=== PATIENT | male | born 1970 | race Caucasian/White ===

== ENCOUNTER → 2017-10-03 | Outpatient (CLI) | payer OTHER ==
[~2017-10-03] MED LIST: CEPH500 PO; HYDACE5 PO; SULTRIDS PO
[2017-10-03 09:48] LABS: BASOPHILS ABSOLUTE AUTO 0.03 K/mm3 (0.00-0.23); BASOPHILS PERCENT AUTO 0 % (0-2); EOSINOPHILS ABSOLUTE AUTO 0.08 K/mm3 (0.00-0.68); EOSINOPHILS PERCENT AUTO 1 % (0-6); Hematocrit 44.1 % (37.0-53.0); Hemoglobin 14.6 g/dL (13.5-17.5); IMMATURE GRAN ABSOLUTE AUTO 0.02 K/mm3 (0.00-0.10); IMMATURE GRAN PERCENT AUTO 0 % (0-1); LYMPHOCYTES ABSOLUTE AUTO 1.34 K/mm3 (0.84-5.20); LYMPHOCYTES PERCENT AUTO 15 % (21-46); MONOCYTES ABSOLUTE AUTO 0.38 K/mm3 (0.16-1.47); MONOCYTES PERCENT AUTO 4 % (4-13); Mean Corpuscular HGB 27.3 pg (26.0-34.0); Mean Corpuscular HGB Conc 33.1 g/dL (31.5-36.5); Mean Corpuscular Volume 82 fL (80-100); Mean Platelet Volume 9.7 fL (9.1-12.4); NEUTROPHILS ABSOLUTE AUTO 7.34 K/mm3 (1.96-9.15); NEUTROPHILS PERCENT AUTO 80 % (41-73); Platelet Count 327 K/mm3 (150-400); RDW Coefficient Variation 13.2 % (11.7-14.2); RDW Standard Deviation 39.7 fL (35.1-46.3); Red Blood Cell Count 5.35 M/mm3 (4.30-5.90); White Blood Cell Count 9.19 K/mm3 (4.00-11.30)
[2017-10-03 10:10] LABS: Alanine Aminotransfer (ALT/SGP 36 U/L (12-78); Albumin, Blood 3.5 g/dL (3.4-5.0); Albumin/Globulin Ratio 0.8 (0.8-1.8); Alk Phos 102 U/L (40-126); Anion Gap 11 mmol/L (6-16); Aspartate Aminotrans (AST/SGOT 24 U/L (12-37); Bilirubin, Total 0.9 mg/dL (0.1-1.0); Blood Urea Nitrogen 21 mg/dL (8-24); Bun/Creatinine Ratio 17.6 (12.0-20.0); CO2, Blood 25 mmol/L (21-32); Chloride, Blood 103 mmol/L (98-108); Creatinine, Blood 1.19 mg/dL (0.60-1.20); Globulin, Blood 4.4 g/dL (2.2-4.0); Glomerular Filtration Rate >60 (60-); Glucose, Blood 186 mg/dL (70-99); Potassium, Blood 4.1 mmol/L (3.5-5.5); Sodium, Blood 139 mmol/L (136-145); Total Protein, Blood 7.9 g/dL (6.4-8.2)
[2017-10-03 10:11] LABS: Troponin I <0.017 ng/mL (0.000-0.040)
== END ==
LOC: LAB SHORT 09:44 → LAB EV 09:44
PROVIDERS: Physician Assistant
DX: R07.89 Other chest pain (principal)
CPT/HCPCS: 80053; 83690; 84484; 85025

== ENCOUNTER → 2017-10-04 | Outpatient (CLI) | payer OTHER ==
[2017-10-04 07:52] LABS: Anion Gap 6 mmol/L (6-16); Blood Urea Nitrogen 18 mg/dL (8-24); Bun/Creatinine Ratio 14.6 (12.0-20.0); CO2, Blood 25 mmol/L (21-32); Calcium, Blood 8.6 mg/dL (8.5-10.1); Chloride, Blood 105 mmol/L (98-108); Creatinine, Blood 1.23 mg/dL (0.60-1.20); Glomerular Filtration Rate >60 (60-); Glucose, Blood 151 mg/dL (70-99); Potassium, Blood 4.1 mmol/L (3.5-5.5); Sodium, Blood 136 mmol/L (136-145)
== END ==
LOC: LAB EV 07:40 → LAB SHORT 07:40
PROVIDERS: General Practice
DX: J18.9 Pneumonia, unspecified organism (principal)
CPT/HCPCS: 80048

== ENCOUNTER 2017-11-12 08:52 | Inpatient (IN) | payer OTHER ==
[~2017-11-12] VITALS: Ht 182.9 cm; Wt 115.0 kg
[2017-11-12 09:45] LABS: Calcium, Ionized (POC) 1.12 mmol/L (1.10-1.46); Chloride (POC) 104 mmol/L (98-108); Creatinine (POC) 0.8 mg/dL (0.8-1.3); Glucose (ISTAT POC) 328 mg/dL (70-99); Hemoglobin (POC) 11.9 g/dL (13.5-17.5); Potassium (POC) 3.8 mmol/L (3.5-5.5); Sodium (POC) 139 mmol/L (135-148); Total CO2 (POC) 24 mmol/L (21-32)
[2017-11-12 09:48] LABS: BASOPHILS ABSOLUTE AUTO 0.02 K/mm3 (0.00-0.23); BASOPHILS PERCENT AUTO 0 % (0-2); EOSINOPHILS ABSOLUTE AUTO 0.07 K/mm3 (0.00-0.68); EOSINOPHILS PERCENT AUTO 1 % (0-6); Hematocrit 35.9 % (37.0-53.0); Hemoglobin 11.4 g/dL (13.5-17.5); IMMATURE GRAN ABSOLUTE AUTO 0.03 K/mm3 (0.00-0.10); IMMATURE GRAN PERCENT AUTO 0 % (0-1); LYMPHOCYTES ABSOLUTE AUTO 0.88 K/mm3 (0.84-5.20); LYMPHOCYTES PERCENT AUTO 10 % (21-46); MONOCYTES ABSOLUTE AUTO 0.36 K/mm3 (0.16-1.47); MONOCYTES PERCENT AUTO 4 % (4-13); Mean Corpuscular HGB 25.8 pg (26.0-34.0); Mean Corpuscular HGB Conc 31.8 g/dL (31.5-36.5); Mean Corpuscular Volume 81 fL (80-100); Mean Platelet Volume 9.3 fL (9.1-12.4); NEUTROPHILS ABSOLUTE AUTO 7.47 K/mm3 (1.96-9.15); NEUTROPHILS PERCENT AUTO 85 % (41-73); Platelet Count 258 K/mm3 (150-400); RDW Coefficient Variation 14.3 % (11.7-14.2); RDW Standard Deviation 42.3 fL (35.1-46.3); Red Blood Cell Count 4.42 M/mm3 (4.30-5.90); White Blood Cell Count 8.83 K/mm3 (4.00-11.30)
[2017-11-12 10:07] LABS: Alanine Aminotransfer (ALT/SGP 34 U/L (12-78); Albumin, Blood 2.8 g/dL (3.4-5.0); Albumin/Globulin Ratio 0.7 (0.8-1.8); Alk Phos 94 U/L (50-136); Anion Gap 10 mmol/L (6-16); Aspartate Aminotrans (AST/SGOT 23 U/L (12-37); Bilirubin, Total 0.9 mg/dL (0.1-1.0); Blood Urea Nitrogen 20 mg/dL (8-24); Bun/Creatinine Ratio 22.4 (12.0-20.0); CO2, Blood 24 mmol/L (21-32); Calcium, Blood 8.2 mg/dL (8.5-10.1); Chloride, Blood 107 mmol/L (98-108); Creatinine, Blood 0.89 mg/dL (0.60-1.20); Globulin, Blood 3.8 g/dL (2.2-4.0); Glomerular Filtration Rate >60 (60-); Glucose, Blood 321 mg/dL (70-99); Potassium, Blood 3.8 mmol/L (3.5-5.5); Sodium, Blood 141 mmol/L (136-145); Total Protein, Blood 6.6 g/dL (6.4-8.2); Troponin I <0.015 ng/mL (0.000-0.040)
[2017-11-12 18:42] LABS: CPK Creatine Kinase 201 U/L (39-308); Creatine Kinase MB Index 1.5 (0.0-4.0); Troponin I <0.015 ng/mL (0.000-0.040)
[2017-11-12 18:43] LABS: Thyroid Stimulating Hormone 0.986 uIU/mL (0.360-4.800)
[2017-11-13 00:58] LABS: Adenovirus Not Detected (NOT DETECT); Coronavirus 229E Not Detected (NOT DETECT); Coronavirus HKU1 Not Detected (NOT DETECT); Coronavirus NL63 Not Detected (NOT DETECT); Coronavirus OC43 Not Detected (NOT DETECT); Human Metapneumovirus Not Detected (NOT DETECT); Human Rhinovirus/Enterovirus Not Detected (NOT DETECT); Influenza A/2009-H1 Not Detected (NOT DETECT); Influenza A/H1 Not Detected (NOT DETECT); Influenza A/H3 Not Detected (NOT DETECT); Influenza B Not Detected (NOT DETECT)
[2017-11-13 00:59] LABS: Bordetella pertussis Not Detected (NOT DETECT); Chlamydophila pneumoniae Not Detected (NOT DETECT); Mycoplasma pneumoniae Not Detected (NOT DETECT); Parainfluenza Virus 1 Not Detected (NOT DETECT); Parainfluenza Virus 2 Not Detected (NOT DETECT); Parainfluenza Virus 3 Not Detected (NOT DETECT); Parainfluenza Virus 4 Not Detected (NOT DETECT); Respiratory Syncytial Virus Not Detected (NOT DETECT)
[2017-11-13 02:15] LABS: Hemoglobin 11.1 g/dL (13.5-17.5); Mean Corpuscular HGB 25.6 pg (26.0-34.0); Mean Corpuscular HGB Conc 31.7 g/dL (31.5-36.5); Mean Corpuscular Volume 81 fL (80-100); Mean Platelet Volume 9.6 fL (9.1-12.4); Platelet Count 256 K/mm3 (150-400); RDW Coefficient Variation 14.4 % (11.7-14.2); RDW Standard Deviation 42.5 fL (35.1-46.3); Red Blood Cell Count 4.34 M/mm3 (4.30-5.90); White Blood Cell Count 6.86 K/mm3 (4.00-11.30)
[2017-11-13 02:26] LABS: Influenza A Not Detected (NOT DETECT)
[2017-11-13 02:38] LABS: Alanine Aminotransfer (ALT/SGP 29 U/L (12-78); Albumin, Blood 2.6 g/dL (3.4-5.0); Albumin/Globulin Ratio 0.7 (0.8-1.8); Alk Phos 88 U/L (50-136); Anion Gap 11 mmol/L (6-16); Aspartate Aminotrans (AST/SGOT 18 U/L (12-37); Blood Urea Nitrogen 17 mg/dL (8-24); Bun/Creatinine Ratio 17.4 (12.0-20.0); CO2, Blood 22 mmol/L (21-32); Chloride, Blood 107 mmol/L (98-108); Creatinine, Blood 0.98 mg/dL (0.60-1.20); Globulin, Blood 3.8 g/dL (2.2-4.0); Glomerular Filtration Rate >60 (60-); Glucose, Blood 166 mg/dL (70-99); Potassium, Blood 3.4 mmol/L (3.5-5.5); Sodium, Blood 140 mmol/L (136-145); Total Protein, Blood 6.4 g/dL (6.4-8.2)
[2017-11-13 02:42] LABS: Creatine Kinase MB Index 1.2 (0.0-4.0)
[2017-11-13 02:53] LABS: Troponin I 0.016 ng/mL (0.000-0.040)
[2017-11-13 12:42] LABS: Percent Saturation 6.9 % (20.0-50.0)
[2017-11-14 04:12] LABS: Hematocrit 33.7 % (37.0-53.0); Hemoglobin 10.6 g/dL (13.5-17.5); Mean Corpuscular HGB 25.2 pg (26.0-34.0); Mean Corpuscular HGB Conc 31.5 g/dL (31.5-36.5); Mean Corpuscular Volume 80 fL (80-100); Mean Platelet Volume 9.8 fL (9.1-12.4); Platelet Count 290 K/mm3 (150-400); RDW Coefficient Variation 14.6 % (11.7-14.2); RDW Standard Deviation 42.5 fL (35.1-46.3); Red Blood Cell Count 4.21 M/mm3 (4.30-5.90); White Blood Cell Count 7.47 K/mm3 (4.00-11.30)
[2017-11-14 04:38] LABS: Anion Gap 11 mmol/L (6-16); Blood Urea Nitrogen 18 mg/dL (8-24); Bun/Creatinine Ratio 17.6 (12.0-20.0); CO2, Blood 24 mmol/L (21-32); Calcium, Blood 8.2 mg/dL (8.5-10.1); Chloride, Blood 106 mmol/L (98-108); Creatinine, Blood 1.02 mg/dL (0.60-1.20); Glomerular Filtration Rate >60 (60-); Glucose, Blood 167 mg/dL (70-99); Magnesium, Blood 2.1 mg/dL (1.6-2.4); Phosphorus, Blood 3.3 mg/dL (2.5-4.9); Potassium, Blood 3.4 mmol/L (3.5-5.5); Sodium, Blood 141 mmol/L (136-145)
[2017-11-15 04:58] LABS: Albumin, Blood 2.5 g/dL (3.4-5.0); Anion Gap 10 mmol/L (6-16); Blood Urea Nitrogen 22 mg/dL (8-24); Bun/Creatinine Ratio 19.3 (12.0-20.0); CO2, Blood 25 mmol/L (21-32); Calcium, Blood 8.4 mg/dL (8.5-10.1); Chloride, Blood 105 mmol/L (98-108); Creatinine, Blood 1.14 mg/dL (0.60-1.20); Glomerular Filtration Rate >60 (60-); Glucose, Blood 144 mg/dL (70-99); Phosphorus, Blood 3.5 mg/dL (2.5-4.9); Potassium, Blood 3.5 mmol/L (3.5-5.5); Sodium, Blood 140 mmol/L (136-145)
[2017-11-15] MEDS ORDERED: CARV6.25 PO (11:18)
[2017-11-15] MEDS ORDERED: DOCU100 PO (11:19)
[2017-11-15] MEDS ORDERED: Ferrous Sulfat325 M2 PO (11:21)
[2017-11-15] MEDS ORDERED: SPIR25 PO (11:22)
[2017-11-15] MEDS ORDERED: Prinivil10 MG PO (11:22)
[2017-11-15] MEDS ORDERED: Augmentin 875-1 EACH PO (11:25)
[2017-11-15] MEDS ORDERED: AZIT500 PO (11:25)
[2017-11-15] MEDS ORDERED: FURO40 PO (11:27)
[2017-11-15] MEDS ORDERED: ACIDOPHILUS1 EAC1 PO (11:29)
[2017-11-15] MEDS ORDERED: METF500C PO (11:30)
== END 2017-11-15 13:38 | disposition home or self-care (01) | DRG 871 ==
LOC: ER 08:52 → PCU 13:30 → MEDS 11-14 16:35 → PCU 11-14 16:47 → MEDS 11-15 13:38
PROVIDERS: Internal Medicine; Internal Medicine Cardiovascular Disease
DX: A41.9 Sepsis, unspecified organism (principal); J18.9 Pneumonia, unspecified organism; J96.00 Acute respiratory failure, unspecified whether with hypoxia or hypercapnia; I50.21 Acute systolic (congestive) heart failure; I42.0 Dilated cardiomyopathy; E11.65 Type 2 diabetes mellitus with hyperglycemia; D50.9 Iron deficiency anemia, unspecified; D63.8 Anemia in other chronic diseases classified elsewhere; E66.9 Obesity, unspecified; Z68.33 Body mass index [BMI] 33.0-33.9, adult; I08.3 Combined rheumatic disorders of mitral, aortic and tricuspid valves; I11.0 Hypertensive heart disease with heart failure; E87.70 Fluid overload, unspecified; Z79.84 Long term (current) use of oral hypoglycemic drugs
CPT/HCPCS: 36415; 71046; 71260; 80047; 80048; 80053; 80069; 82550; 82553; 82728; 82947; 83036; 83540; 83550; 83605; 83735; 83880; 84100; 84145; 84443; 84484; 85014; 85025; 85027; 87040; 87070; 87205; 87449; 87486; 87581; 87633; 87798; 93005; 93010; 93306; 94640; 94760; 99285; J0456; J1650; J1940; J2405; J2543; J7030; J7050; Q9967

== ENCOUNTER 2018-01-15 06:06 | Day surgery (SDC) | payer OTHER ==
[~2018-01-15] VITALS: Ht 177.8 cm; Wt 104.0 kg
[~2018-01-15 06:06] MED LIST changes: +ACIDOPHILUS1 EAC1 PO; +AZIT500 PO; +Aspir 8181 MG PO; +Augmentin 875-1 EACH PO; +CARV6.25 PO; +DOCU100 PO; +EPIPEN0.3 MG/0.3; +FURO40 PO; +Ferrous Sulfat325 M2 PO; +METF500C PO; +Prinivil10 MG PO; +SPIR25 PO
[2018-01-15] MEDS ORDERED: ENTRESTO 24 MG1 EACH PO (06:32)
[2018-01-16] MEDS ORDERED: Aspirin EC325 MG PO (09:50)
[2018-01-16] MEDS ORDERED: CLOP75 PO (09:50)
== END 2018-01-16 10:30 | disposition home or self-care (01) ==
LOC: MHTC 06:06 → PCU 09:32 → MHTC 01-16 10:30
PROC: 4A033BC Measurement of Arterial Pressure, Coronary, Percutaneous Approach (ICD-10-PCS; principal; 2018-01-15)
PROC: B211YZZ Fluoroscopy of Multiple Coronary Arteries using Other Contrast (ICD-10-PCS; principal; 2018-01-15)
PROC: 027034Z Dilation of Coronary Artery, One Artery with Drug-eluting Intraluminal Device, Percutaneous Approach (ICD-10-PCS; principal; 2018-01-15)
PROC: 4A023N7 Measurement of Cardiac Sampling and Pressure, Left Heart, Percutaneous Approach (ICD-10-PCS; principal; 2018-01-15)
DX: I25.10 Atherosclerotic heart disease of native coronary artery without angina pectoris (principal); I42.9 Cardiomyopathy, unspecified; E66.9 Obesity, unspecified; I10 Essential (primary) hypertension; E11.9 Type 2 diabetes mellitus without complications; E78.5 Hyperlipidemia, unspecified; R06.02 Shortness of breath
CPT/HCPCS: 36415; 82565; 85347; 93005; 93010; 93454; 93571; 99152; 99153; C1725; C1769; C1874; C1894; C9600; J1644; J2250; J3010; J7030; Q9967

== ENCOUNTER → 2018-12-05 | Outpatient (CLI) | payer OTHER ==
[~2018-12-05] MED LIST changes: +ATOR20 PO; +Aspirin EC325 MG PO; +CLOP75 PO; +ENTRESTO 24 MG1 EACH PO; +Glucotrol Xl5 MG PO; +METO25ER PO
== END | disposition home or self-care (01) ==
LOC: LAB SHORT 18:55 → LAB 18:55
DX: E11.621 Type 2 diabetes mellitus with foot ulcer (principal); L97.519 Non-pressure chronic ulcer of other part of right foot with unspecified severity
CPT/HCPCS: 87070; 87077; 87186; 87205

== ENCOUNTER → 2019-05-09 | Outpatient (CLI) | payer OTHER ==
[2019-05-09 14:12] LABS: Microalb/Creat Ratio UR, Rand 18.205 mg/g (0.000-30.000); Microalbumin, Random Urine 21.3 mg/L (0.000-20.000)
== END | disposition home or self-care (01) ==
LOC: LAB SHORT 10:41 → LAB 10:41
PROVIDERS: Nurse Practitioner Family
DX: E11.42 Type 2 diabetes mellitus with diabetic polyneuropathy (principal)
CPT/HCPCS: 82043; 82570

== ENCOUNTER → 2019-05-23 | Outpatient (CLI) | payer OTHER | END | disposition home or self-care (01) | LOC: LAB SHORT 13:20 → LAB 13:20 | DX: L97.519 Non-pressure chronic ulcer of other part of right foot with unspecified severity (principal) | CPT/HCPCS: 87070; 87075; 87205 ==

== ENCOUNTER 2020-09-24 08:54 | Day surgery (SDC) | payer OTHER | END 2020-09-24 09:00 | disposition home or self-care (01) | LOC: MHTC 08:54 | DX: I50.811 Acute right heart failure (principal) ==

== ENCOUNTER 2020-12-24 18:43 | Inpatient (IN) | payer OTHER ==
[~2020-12-24] VITALS: Ht 180.3 cm; Wt 112.7 kg
[~2020-12-24 18:43] MED LIST changes: -ATOR20 PO; +ATOR40TA PO; +ERGO50000 PO; +LATA.005SO BOTHEYES; +LEVO750 PO; +LOSA25 PO; +Lasix20 MG PO; +METO100ER PO; -METO25ER PO; +POTCHL20ER PO
[2020-12-24 19:07] LABS: BASOPHILS ABSOLUTE AUTO 0.01 K/mm3 (0.00-0.23); BASOPHILS PERCENT AUTO 0 % (0-2); EOSINOPHILS PERCENT AUTO 0 % (0-6); Hematocrit 38.7 % (37.0-53.0); Hemoglobin 12.3 g/dL (13.5-17.5); IMMATURE GRAN ABSOLUTE AUTO 0.03 K/mm3 (0.00-0.10); IMMATURE GRAN PERCENT AUTO 0 % (0-1); LYMPHOCYTES ABSOLUTE AUTO 0.39 K/mm3 (0.84-5.20); LYMPHOCYTES PERCENT AUTO 5 % (21-46); MONOCYTES ABSOLUTE AUTO 0.33 K/mm3 (0.16-1.47); MONOCYTES PERCENT AUTO 5 % (4-13); Mean Corpuscular HGB 25.9 pg (26.0-34.0); Mean Corpuscular HGB Conc 31.8 g/dL (31.5-36.5); Mean Corpuscular Volume 82 fL (80-100); Mean Platelet Volume 10.5 fL (9.1-12.4); NEUTROPHILS ABSOLUTE AUTO 6.48 K/mm3 (1.96-9.15); NEUTROPHILS PERCENT AUTO 90 % (41-73); Platelet Count 248 K/mm3 (150-400); RDW Standard Deviation 48.1 fL (35.1-46.3); Red Blood Cell Count 4.74 M/mm3 (4.30-5.90); White Blood Cell Count 7.24 K/mm3 (4.00-11.30)
[2020-12-24 19:43] LABS: Albumin, Blood 2.7 g/dL (3.4-5.0); Albumin/Globulin Ratio 0.6 (0.8-1.8); Bilirubin, Total 1.2 mg/dL (0.1-1.0); Bun/Creatinine Ratio 24.5 (12.0-20.0); Calcium, Blood 8.6 mg/dL (8.5-10.1); Creatinine, Blood 2.69 mg/dL (0.60-1.20); Globulin, Blood 4.6 g/dL (2.2-4.0); Potassium, Blood 4.1 mmol/L (3.5-5.5); Total Protein, Blood 7.3 g/dL (6.4-8.2); Troponin I 0.108 ng/mL (0.000-0.040)
[2020-12-24 20:00] LABS: SARS-Cov-2 (COVID-19) PCR, MMC POSITIVE (NEGATIVE)
[2020-12-25 05:06] LABS: BASOPHILS ABSOLUTE AUTO 0.02 K/mm3 (0.00-0.23); BASOPHILS PERCENT AUTO 0 % (0-2); EOSINOPHILS PERCENT AUTO 0 % (0-6); Hematocrit 37.5 % (37.0-53.0); Hemoglobin 11.9 g/dL (13.5-17.5); Mean Corpuscular HGB 26.4 pg (26.0-34.0); Mean Corpuscular HGB Conc 31.7 g/dL (31.5-36.5); Mean Corpuscular Volume 83 fL (80-100); Mean Platelet Volume 10.4 fL (9.1-12.4); Platelet Count 239 K/mm3 (150-400); RDW Coefficient Variation 15.9 % (11.7-14.2); RDW Standard Deviation 48.5 fL (35.1-46.3); Red Blood Cell Count 4.51 M/mm3 (4.30-5.90); White Blood Cell Count 7.63 K/mm3 (4.00-11.30)
[2020-12-25 05:08] LABS: IMMATURE GRAN ABSOLUTE AUTO 0.05 K/mm3 (0.00-0.10); IMMATURE GRAN PERCENT AUTO 1 % (0-1); LYMPHOCYTES ABSOLUTE AUTO 0.42 K/mm3 (0.84-5.20); LYMPHOCYTES PERCENT AUTO 6 % (21-46); MONOCYTES ABSOLUTE AUTO 0.24 K/mm3 (0.16-1.47); MONOCYTES PERCENT AUTO 3 % (4-13); NEUTROPHILS PERCENT AUTO 90 % (41-73)
[2020-12-25 05:30] LABS: Troponin I 0.095 ng/mL (0.000-0.040)
[2020-12-25 05:31] LABS: Albumin, Blood 2.5 g/dL (3.4-5.0); Albumin/Globulin Ratio 0.5 (0.8-1.8); Bilirubin, Total 1.2 mg/dL (0.1-1.0); Calcium, Blood 8.4 mg/dL (8.5-10.1); Creatinine, Blood 2.83 mg/dL (0.60-1.20); Globulin, Blood 4.8 g/dL (2.2-4.0); Potassium, Blood 4.1 mmol/L (3.5-5.5); Total Protein, Blood 7.3 g/dL (6.4-8.2)
[2020-12-27 05:42] LABS: BASOPHILS PERCENT AUTO 0 % (0-2); EOSINOPHILS PERCENT AUTO 0 % (0-6); Hematocrit 39.5 % (37.0-53.0); Hemoglobin 12.5 g/dL (13.5-17.5); IMMATURE GRAN ABSOLUTE AUTO 0.09 K/mm3 (0.00-0.10); IMMATURE GRAN PERCENT AUTO 1 % (0-1); LYMPHOCYTES ABSOLUTE AUTO 0.48 K/mm3 (0.84-5.20); LYMPHOCYTES PERCENT AUTO 5 % (21-46); MONOCYTES ABSOLUTE AUTO 0.28 K/mm3 (0.16-1.47); MONOCYTES PERCENT AUTO 3 % (4-13); Mean Corpuscular HGB 26.4 pg (26.0-34.0); Mean Corpuscular HGB Conc 31.6 g/dL (31.5-36.5); Mean Corpuscular Volume 83 fL (80-100); Mean Platelet Volume 10.3 fL (9.1-12.4); NEUTROPHILS PERCENT AUTO 91 % (41-73); Platelet Count 345 K/mm3 (150-400); RDW Coefficient Variation 15.7 % (11.7-14.2); RDW Standard Deviation 48.1 fL (35.1-46.3); Red Blood Cell Count 4.74 M/mm3 (4.30-5.90); White Blood Cell Count 9.45 K/mm3 (4.00-11.30)
[2020-12-27 06:07] LABS: Bun/Creatinine Ratio 36.1 (12.0-20.0); Calcium, Blood 9.1 mg/dL (8.5-10.1); Creatinine, Blood 2.05 mg/dL (0.60-1.20); Potassium, Blood 4.5 mmol/L (3.5-5.5)
[2020-12-29] MEDS ORDERED: CLOP75 PO (15:16)
[2020-12-29] MEDS ORDERED: ATOR40TA PO (15:16)
[2020-12-29] MEDS ORDERED: Aspir 8181 MG PO (15:16)
[2020-12-29] MEDS ORDERED: DEXA6 PO (15:17)
[2020-12-29] MEDS ORDERED: METO100ER PO (15:18)
[2020-12-29] MEDS ORDERED: SODBIC650 PO (15:18)
[2020-12-29] MEDS ORDERED: ALDACTONE25 MG PO (15:18)
[2020-12-29] MEDS ORDERED: XALATAN2.5 ML BOTHEYES (15:18)
[2020-12-29] MEDS ORDERED: THERA-D2000 UNIT PO (15:19)
== END 2020-12-29 19:44 | disposition home or self-care (01) | DRG 871 ==
LOC: ER 18:43 → ERHOLD 21:24 → MEDS 21:24
PROVIDERS: Emergency Medicine; Hospitalist; ADMIT Internal Medicine
PROC: 3E0D73Z Introduction of Anti-inflammatory into Mouth and Pharynx, Via Natural or Artificial Opening (ICD-10-PCS; principal; 2020-12-24)
DX: A41.89 Other specified sepsis (principal); U07.1 COVID-19; J12.82 Pneumonia due to coronavirus disease 2019; J96.01 Acute respiratory failure with hypoxia; I42.8 Other cardiomyopathies; I50.22 Chronic systolic (congestive) heart failure; I24.8 Other forms of acute ischemic heart disease; N17.9 Acute kidney failure, unspecified; E87.2 Acidosis; Z68.41 Body mass index [BMI] 40.0-44.9, adult; Z66 Do not resuscitate; R65.20 Severe sepsis without septic shock; E11.65 Type 2 diabetes mellitus with hyperglycemia; N18.30 Chronic kidney disease, stage 3 unspecified; E11.22 Type 2 diabetes mellitus with diabetic chronic kidney disease; I34.0 Nonrheumatic mitral (valve) insufficiency; E66.9 Obesity, unspecified; I25.10 Atherosclerotic heart disease of native coronary artery without angina pectoris; D50.9 Iron deficiency anemia, unspecified; Z87.891 Personal history of nicotine dependence; Z91.038 Other insect allergy status; Z95.810 Presence of automatic (implantable) cardiac defibrillator; Z79.82 Long term (current) use of aspirin; Z79.02 Long term (current) use of antithrombotics/antiplatelets; Z79.84 Long term (current) use of oral hypoglycemic drugs; Z79.899 Other long term (current) drug therapy; Z95.5 Presence of coronary angioplasty implant and graft
CPT/HCPCS: 36415; 71045; 80048; 80053; 82728; 82947; 83615; 83880; 84484; 85025; 85379; 85651; 93005; 93010; 99285-25; A9270; J1650; J1815; J1940; U0004

== ENCOUNTER 2021-03-28 08:21 | Inpatient (IN) | payer OTHER ==
[~2021-03-28] VITALS: Ht 180.3 cm; Wt 118.0 kg
[~2021-03-28 08:21] MED LIST changes: +ALDACTONE25 MG PO; +DEXA6 PO; +SODBIC650 PO; +THERA-D2000 UNIT PO; +XALATAN2.5 ML BOTHEYES
[2021-03-28 08:49] LABS: BASOPHILS ABSOLUTE AUTO 0.04 K/mm3 (0.00-0.23); BASOPHILS PERCENT AUTO 0 % (0-2); EOSINOPHILS ABSOLUTE AUTO 0.07 K/mm3 (0.00-0.68); EOSINOPHILS PERCENT AUTO 1 % (0-6); Hematocrit 36.4 % (37.0-53.0); Hemoglobin 10.7 g/dL (13.5-17.5); IMMATURE GRAN ABSOLUTE AUTO 0.04 K/mm3 (0.00-0.10); IMMATURE GRAN PERCENT AUTO 0 % (0-1); LYMPHOCYTES ABSOLUTE AUTO 0.81 K/mm3 (0.84-5.20); LYMPHOCYTES PERCENT AUTO 8 % (21-46); MONOCYTES ABSOLUTE AUTO 0.74 K/mm3 (0.16-1.47); MONOCYTES PERCENT AUTO 7 % (4-13); Mean Corpuscular HGB 23.8 pg (26.0-34.0); Mean Corpuscular HGB Conc 29.4 g/dL (31.5-36.5); Mean Corpuscular Volume 81 fL (80-100); Mean Platelet Volume 9.5 fL (9.1-12.4); NEUTROPHILS ABSOLUTE AUTO 9.06 K/mm3 (1.96-9.15); NEUTROPHILS PERCENT AUTO 84 % (41-73); Platelet Count 392 K/mm3 (150-400); RDW Coefficient Variation 18.2 % (11.7-14.2); RDW Standard Deviation 53.1 fL (35.1-46.3); White Blood Cell Count 10.76 K/mm3 (4.00-11.30)
[2021-03-28 09:12] LABS: Alanine Aminotransfer (ALT/SGP 49 U/L (12-78); Albumin, Blood 2.6 g/dL (3.4-5.0); Albumin/Globulin Ratio 0.6 (0.8-1.8); Alk Phos 88 U/L (50-136); Anion Gap 6 mmol/L (6-16); Aspartate Aminotrans (AST/SGOT 22 U/L (12-37); Bilirubin, Total 1.9 mg/dL (0.1-1.0); Blood Urea Nitrogen 26 mg/dL (8-24); Bun/Creatinine Ratio 13.8 (12.0-20.0); CO2, Blood 25 mmol/L (21-32); Calcium, Blood 9.3 mg/dL (8.5-10.1); Chloride, Blood 109 mmol/L (98-108); Creatinine, Blood 1.88 mg/dL (0.60-1.20); Globulin, Blood 4.7 g/dL (2.2-4.0); Glomerular Filtration Rate 38 (60-); Glucose, Blood 221 mg/dL (70-99); Potassium, Blood 4.7 mmol/L (3.5-5.5); Sodium, Blood 140 mmol/L (136-145); Total Protein, Blood 7.3 g/dL (6.4-8.2); Troponin I <0.015 ng/mL (0.000-0.040)
[2021-03-28 09:45] LABS: Influenza A, PCR NEGATIVE (NEGATIVE); Influenza B, PCR NEGATIVE (NEGATIVE); Resp Syncytial Virus, PCR NEGATIVE (NEGATIVE)
[2021-03-28 09:50] LABS: SARS-Cov-2 (COVID-19) PCR, MMC POSITIVE (NEGATIVE)
[2021-03-28 13:05] LABS: Base Excess Venous -1.7 mmol/L; Bicarbonate Venous 22.9 mmol/L (24.0-30.0); PCO2 Venous 36.8 mmHg (38-42)
--- NOTE | 2021-03-28 14:03 | NUR ---
Echocardiogram using 0.60ml of Definity contrast performed.
[2021-03-28 15:39] LABS: U Amphetamine Screen Not Detected; U Barbituate Screen Not Detected; U Benzodiazapine Screen Not Detected; U Buprenorphine Screen Not Detected; U Cannabinoids Screen Not Detected; U Cocaine Screen Not Detected; U Methadone Screen Not Detected; U Methamphetamine Screen Not Detected; U Opiates Screen Not Detected; U Oxycodone Screen Not Detected; U Phencyclidine Screen Not Detected; U Propoxyphene Screen Not Detected
--- NOTE | 2021-03-28 18:38 | NUR ---
ADMIT NOTE RECEIVED REPORT FROM KAYLEE RAMESH IN ED. PT TO ROOM AT APPROX 1715. PT ORIENTED TO ROOM AND CALL LIGHT. EDUCATED ON FALL RISK AND NEED TO CALL FOR ASSISTANCE. PT REPROTS HAVING COVID BACK IN 12/2020, REPROTS FEELING BETTER FOR "HUNTING SEASON" THEN RECENTLY STARTED HAVING WORSENING COUGH AND SOB. PT SPO2 AT 100% ON 3L O2 VIA NC, TITRATED TO 1L O2 VIA NC. PT A&Ox4; CALM AND COOPERATIVE WITH CARE. PT RESTING IN BED, SBA IN ROOM. PT REPORT RIGHT SIDED RIB PAIN WITH COUGHING. PT DENIES CHEST PAIN, SOB, NAUSEA AND DIZZINESS. OTHER VSS. EDEMA TO BLE 1+. OTHER VSS. NO OTHER ACUTE CHANGES NOTED. WILL CONTINUE TO MONITOR UNITL REPORT GIVEN TO ONCOMING RN.
--- NOTE | 2021-03-28 22:19 | NUR ---
PT IS ALERT AND ORIENTED. VITALS ARE STABLE AND IS CURRENTLY ON 2L NC DUE TO REPORT OF FEELING SOB. HIS SATS ARE ABOVE 92%. DENIES CHEST PAIN. PT REPORTS HAVING NO SENSATION IN BLE. PT REPORTS NO PAIN AND FEELING COMFORTABLE AT THE MOMENT. URINAL IS AT BEDSIDE AND WAS EDUCATED ON CALLING FOR HELP. CALL LIGHT IS WITHIN REACH. WILL CONTINUE TO MONITOR.
[2021-03-29 04:48] LABS: BASOPHILS ABSOLUTE AUTO 0.01 K/mm3 (0.00-0.23); BASOPHILS PERCENT AUTO 0 % (0-2); EOSINOPHILS PERCENT AUTO 0 % (0-6); Hematocrit 32.1 % (37.0-53.0); Hemoglobin 9.5 g/dL (13.5-17.5); IMMATURE GRAN ABSOLUTE AUTO 0.08 K/mm3 (0.00-0.10); IMMATURE GRAN PERCENT AUTO 1 % (0-1); LYMPHOCYTES ABSOLUTE AUTO 0.44 K/mm3 (0.84-5.20); LYMPHOCYTES PERCENT AUTO 3 % (21-46); MONOCYTES ABSOLUTE AUTO 0.76 K/mm3 (0.16-1.47); MONOCYTES PERCENT AUTO 5 % (4-13); Mean Corpuscular HGB 23.6 pg (26.0-34.0); Mean Corpuscular HGB Conc 29.6 g/dL (31.5-36.5); Mean Corpuscular Volume 80 fL (80-100); Mean Platelet Volume 9.6 fL (9.1-12.4); NEUTROPHILS ABSOLUTE AUTO 12.67 K/mm3 (1.96-9.15); NEUTROPHILS PERCENT AUTO 91 % (41-73); Platelet Count 327 K/mm3 (150-400); RDW Coefficient Variation 18.1 % (11.7-14.2); RDW Standard Deviation 52.6 fL (35.1-46.3); Red Blood Cell Count 4.02 M/mm3 (4.30-5.90); White Blood Cell Count 13.96 K/mm3 (4.00-11.30)
[2021-03-29 05:09] LABS: Albumin/Globulin Ratio 0.5 (0.8-1.8); Bilirubin, Total 1.5 mg/dL (0.1-1.0); Bun/Creatinine Ratio 16.8 (12.0-20.0); Calcium, Blood 8.8 mg/dL (8.5-10.1); Creatinine, Blood 1.9 mg/dL (0.60-1.20); Magnesium, Blood 2.6 mg/dL (1.6-2.4); Potassium, Blood 4.8 mmol/L (3.5-5.5)
--- NOTE | 2021-03-29 18:01 | NUR ---
SHIFT SUMMARY PT HAS BEEN RESTING IN BED FOR MOST OF THE DAY. PT HAS BEEN WITHDRAWN AND OFFERS LITTLE COMMUNICATION. PT HAS USED THE CALL LIGHT APPROPRIATELY AND BEEN FULLY ALERT AND ORIENTED. PT EXPRESSED SOME ANXIETY AND CONCERN THIS EVENING OVER THEIR IMPENDING TRANSFER, THERAPEUTIC COMMUNICATION ALLEVIATED SOME OF THEIR CONCERNS. VSS, NO ACUTE CHANGES TO CURRENT CONDITION.
--- NOTE | 2021-03-29 18:43 | NUR ---
TRANSFER NOTE EMS ARRIVED TO TRANSPORT PT. PT TRANSFERRED BY SELF TO [facility]. PT BELONGINGS AND PT CHART HANDED OFF TO EMS, REPORT GIVEN TO EMS.
== END 2021-03-29 18:38 | disposition short-term general hospital (02) | DRG 177 ==
LOC: ER 08:21 → ERHOLD 11:18 → PCU 11:18
PROVIDERS: Emergency Medicine; Nurse Practitioner Acute Care; ADMIT Hospitalist
PROC: 5A09457 Assistance with Respiratory Ventilation, 24-96 Consecutive Hours, Continuous Positive Airway Pressure (ICD-10-PCS; principal; 2021-03-28)
PROC: 3E0333Z Introduction of Anti-inflammatory into Peripheral Vein, Percutaneous Approach (ICD-10-PCS; 2021-03-28)
PROC: 8E0ZXY6 Isolation (ICD-10-PCS; 2021-03-29)
DX: U07.1 COVID-19 (principal); J96.01 Acute respiratory failure with hypoxia; J12.82 Pneumonia due to coronavirus disease 2019; I50.43 Acute on chronic combined systolic (congestive) and diastolic (congestive) heart failure; I42.8 Other cardiomyopathies; T82.190A Other mechanical complication of cardiac electrode, initial encounter; I38 Endocarditis, valve unspecified; Z66 Do not resuscitate; H11.32 Conjunctival hemorrhage, left eye; E11.22 Type 2 diabetes mellitus with diabetic chronic kidney disease; N18.30 Chronic kidney disease, stage 3 unspecified; I25.10 Atherosclerotic heart disease of native coronary artery without angina pectoris; I34.0 Nonrheumatic mitral (valve) insufficiency; D50.9 Iron deficiency anemia, unspecified; E78.5 Hyperlipidemia, unspecified; Z91.038 Other insect allergy status; Z95.5 Presence of coronary angioplasty implant and graft; Z95.0 Presence of cardiac pacemaker; Y83.9 Surgical procedure, unspecified as the cause of abnormal reaction of the patient, or of later complication, without mention of misadventure at the time of the procedure
CPT/HCPCS: 0241U; 36415; 71045; 80053; 82728; 82803; 82947; 83615; 83735; 83880; 84484; 85025; 86140; 87040; 93005; 93010; 94660; 94762; 96374; 96375; 99285-25; A9270; C8929; J0692; J1100; J1644; J1940; J3370; J7050; Q9957

== ENCOUNTER 2021-04-25 17:00 | Inpatient (IN) | payer OTHER ==
[~2021-04-25] VITALS: Ht 180.3 cm; Wt 107.5 kg
[2021-04-25 17:57] LABS: BASOPHILS ABSOLUTE AUTO 0.06 K/mm3 (0.00-0.23); BASOPHILS PERCENT AUTO 1 % (0-2); EOSINOPHILS ABSOLUTE AUTO 0.26 K/mm3 (0.00-0.68); EOSINOPHILS PERCENT AUTO 3 % (0-6); Hematocrit 37.2 % (37.0-53.0); Hemoglobin 10.6 g/dL (13.5-17.5); IMMATURE GRAN ABSOLUTE AUTO 0.03 K/mm3 (0.00-0.10); IMMATURE GRAN PERCENT AUTO 0 % (0-1); LYMPHOCYTES ABSOLUTE AUTO 0.92 K/mm3 (0.84-5.20); LYMPHOCYTES PERCENT AUTO 11 % (21-46); MONOCYTES ABSOLUTE AUTO 0.66 K/mm3 (0.16-1.47); MONOCYTES PERCENT AUTO 8 % (4-13); Mean Corpuscular HGB 22.6 pg (26.0-34.0); Mean Corpuscular HGB Conc 28.5 g/dL (31.5-36.5); Mean Corpuscular Volume 80 fL (80-100); Mean Platelet Volume 9.2 fL (9.1-12.4); NEUTROPHILS ABSOLUTE AUTO 6.25 K/mm3 (1.96-9.15); NEUTROPHILS PERCENT AUTO 76 % (41-73); Platelet Count 423 K/mm3 (150-400); RDW Coefficient Variation 18.9 % (11.7-14.2); RDW Standard Deviation 53.8 fL (35.1-46.3); Red Blood Cell Count 4.68 M/mm3 (4.30-5.90); White Blood Cell Count 8.18 K/mm3 (4.00-11.30)
[2021-04-25 18:20] LABS: Alanine Aminotransfer (ALT/SGP 21 U/L (12-78); Albumin, Blood 2.5 g/dL (3.4-5.0); Albumin/Globulin Ratio 0.5 (0.8-1.8); Alk Phos 109 U/L (50-136); Anion Gap 7 mmol/L (6-16); Aspartate Aminotrans (AST/SGOT 15 U/L (12-37); Bilirubin, Total 0.9 mg/dL (0.1-1.0); Blood Urea Nitrogen 35 mg/dL (8-24); Bun/Creatinine Ratio 17.9 (12.0-20.0); CO2, Blood 19 mmol/L (21-32); Calcium, Blood 9.2 mg/dL (8.5-10.1); Chloride, Blood 109 mmol/L (98-108); Creatinine, Blood 1.96 mg/dL (0.60-1.20); Globulin, Blood 4.9 g/dL (2.2-4.0); Glomerular Filtration Rate 36 (60-); Glucose, Blood 97 mg/dL (70-99); Sodium, Blood 135 mmol/L (136-145); Total Protein, Blood 7.4 g/dL (6.4-8.2); Troponin I <0.015 ng/mL (0.000-0.040)
[2021-04-25] MEDS ORDERED: ELIQUIS2.5 MG PO (22:37)
[2021-04-26 02:26] LABS: Adenovirus Not Detected (NOT DETECT); Bordetella pertussis Not Detected (NOT DETECT); Chlamydophila pneumoniae Not Detected (NOT DETECT); Coronavirus 229E Not Detected (NOT DETECT); Coronavirus HKU1 Not Detected (NOT DETECT); Coronavirus NL63 Not Detected (NOT DETECT); Coronavirus OC43 Not Detected (NOT DETECT); Human Metapneumovirus Not Detected (NOT DETECT); Human Rhinovirus/Enterovirus Not Detected (NOT DETECT); Influenza A/2009-H1 Not Detected (NOT DETECT); Influenza A/H1 Not Detected (NOT DETECT); Influenza A/H3 Not Detected (NOT DETECT); Influenza B Not Detected (NOT DETECT); Mycoplasma pneumoniae Not Detected (NOT DETECT); Parainfluenza Virus 1 Not Detected (NOT DETECT); Parainfluenza Virus 2 Not Detected (NOT DETECT); Parainfluenza Virus 3 Not Detected (NOT DETECT); Parainfluenza Virus 4 Not Detected (NOT DETECT); Respiratory Syncytial Virus Not Detected (NOT DETECT); SARS-Cov-2 (COVID-19), BioFire Not Detected (NOT DETECT)
[2021-04-26 05:53] LABS: BASOPHILS ABSOLUTE AUTO 0.04 K/mm3 (0.00-0.23); BASOPHILS PERCENT AUTO 1 % (0-2); EOSINOPHILS ABSOLUTE AUTO 0.29 K/mm3 (0.00-0.68); EOSINOPHILS PERCENT AUTO 4 % (0-6); Hematocrit 34.1 % (37.0-53.0); IMMATURE GRAN ABSOLUTE AUTO 0.02 K/mm3 (0.00-0.10); IMMATURE GRAN PERCENT AUTO 0 % (0-1); LYMPHOCYTES ABSOLUTE AUTO 0.95 K/mm3 (0.84-5.20); LYMPHOCYTES PERCENT AUTO 14 % (21-46); MONOCYTES ABSOLUTE AUTO 0.48 K/mm3 (0.16-1.47); MONOCYTES PERCENT AUTO 7 % (4-13); Mean Corpuscular HGB 22.3 pg (26.0-34.0); Mean Corpuscular HGB Conc 29.3 g/dL (31.5-36.5); Mean Corpuscular Volume 76 fL (80-100); Mean Platelet Volume 9.2 fL (9.1-12.4); NEUTROPHILS ABSOLUTE AUTO 5.26 K/mm3 (1.96-9.15); NEUTROPHILS PERCENT AUTO 75 % (41-73); Platelet Count 398 K/mm3 (150-400); RDW Coefficient Variation 18.7 % (11.7-14.2); RDW Standard Deviation 50.9 fL (35.1-46.3); Red Blood Cell Count 4.48 M/mm3 (4.30-5.90); White Blood Cell Count 7.04 K/mm3 (4.00-11.30)
[2021-04-26 06:43] LABS: Albumin, Blood 2.3 g/dL (3.4-5.0); Albumin/Globulin Ratio 0.6 (0.8-1.8); Bilirubin, Total 0.9 mg/dL (0.1-1.0); Bun/Creatinine Ratio 17.3 (12.0-20.0); Calcium, Blood 8.9 mg/dL (8.5-10.1); Creatinine, Blood 2.14 mg/dL (0.60-1.20); Globulin, Blood 4.1 g/dL (2.2-4.0); Total Protein, Blood 6.4 g/dL (6.4-8.2)
[2021-04-26] MEDS ORDERED: BENZ100A PO (15:42)
[2021-04-26] MEDS ORDERED: HYDR1TAB94 PO (15:43)
--- NOTE | 2021-04-26 16:07 | NUR ---
PCU ADMIT / DISCHARGE HOME PT BROUGHT TO PCU-11 BY DESTINY FROM ER @ APPROX 1420. PT A&O X4. PT DENYING PAIN UPON ARRIVAL TO UNIT. VSS, THOUGH RR 30's W/ MINIMAL EXERTION. PT W/ HARSH, DRY COUGH. STORMY TO PT BEDSIDE W/ INSTRUCTION TO GIVE PT COUGH MEDICATION & PAIN MEDICATION FOR LCW PACER SITE DISCOMFORT & DISCHARGE PT HOME. PT LCW PACER SITE SLIGHTLY RAISED. PT W/ CONCERNS ABOUT PACER BEING "RIPPED" OUT WHILE SLEEPING/MOVING WHILE SLEEPING. PT SENT HOME W/ GAUZE TAPED OVER PACER SITE TO PROVIDE PT W/ COMFORT FOR SLEEP. PT DISCHARGED HOME @ APPROX 1600.
== END 2021-04-26 16:00 | disposition home or self-care (01) | DRG 314 ==
LOC: ER 17:00 → ERHOLD 17:01 → PCU 04-26 14:22
PROVIDERS: Emergency Medicine; Family Medicine; ADMIT Internal Medicine
DX: T82.847A Pain due to cardiac prosthetic devices, implants and grafts, initial encounter (principal); I50.23 Acute on chronic systolic (congestive) heart failure; I42.8 Other cardiomyopathies; Y83.8 Other surgical procedures as the cause of abnormal reaction of the patient, or of later complication, without mention of misadventure at the time of the procedure; E78.5 Hyperlipidemia, unspecified; D50.9 Iron deficiency anemia, unspecified; Z20.822 Contact with and (suspected) exposure to COVID-19; I34.0 Nonrheumatic mitral (valve) insufficiency; Z66 Do not resuscitate; N18.30 Chronic kidney disease, stage 3 unspecified; I25.10 Atherosclerotic heart disease of native coronary artery without angina pectoris; E11.22 Type 2 diabetes mellitus with diabetic chronic kidney disease; Z91.038 Other insect allergy status; Z91.030 Bee allergy status; Z95.5 Presence of coronary angioplasty implant and graft; Z79.82 Long term (current) use of aspirin; Z79.02 Long term (current) use of antithrombotics/antiplatelets; Z79.899 Other long term (current) drug therapy
CPT/HCPCS: 0202U; 36415; 71045; 76604; 80053; 83880; 84484; 85025; 93005; 93010; 93306; 99285-25; A9270

== ENCOUNTER 2021-07-24 18:27 | Inpatient (IN) | payer OTHER ==
[~2021-07-24] VITALS: Ht 180.3 cm; Wt 116.9 kg
[~2021-07-24 18:27] MED LIST changes: +BENZ100A PO; +ELIQUIS2.5 MG PO; +HYDR1TAB94 PO
[2021-07-24 19:23] LABS: BASOPHILS ABSOLUTE AUTO 0.05 K/mm3 (0.00-0.23); BASOPHILS PERCENT AUTO 1 % (0-2); EOSINOPHILS ABSOLUTE AUTO 0.04 K/mm3 (0.00-0.68); EOSINOPHILS PERCENT AUTO 1 % (0-6); Hematocrit 40.5 % (37.0-53.0); Hemoglobin 11.7 g/dL (13.5-17.5); IMMATURE GRAN ABSOLUTE AUTO 0.03 K/mm3 (0.00-0.10); IMMATURE GRAN PERCENT AUTO 1 % (0-1); LYMPHOCYTES ABSOLUTE AUTO 1.18 K/mm3 (0.84-5.20); LYMPHOCYTES PERCENT AUTO 19 % (21-46); MONOCYTES ABSOLUTE AUTO 0.57 K/mm3 (0.16-1.47); MONOCYTES PERCENT AUTO 9 % (4-13); Mean Corpuscular HGB 22.1 pg (26.0-34.0); Mean Corpuscular HGB Conc 28.9 g/dL (31.5-36.5); Mean Corpuscular Volume 77 fL (80-100); Mean Platelet Volume 10.2 fL (9.1-12.4); NEUTROPHILS PERCENT AUTO 69 % (41-73); Platelet Count 350 K/mm3 (150-400); RDW Coefficient Variation 20.3 % (11.7-14.2); RDW Standard Deviation 55.3 fL (35.1-46.3); Red Blood Cell Count 5.29 M/mm3 (4.30-5.90); White Blood Cell Count 6.07 K/mm3 (4.00-11.30)
[2021-07-24 19:37] LABS: Albumin, Blood 3.1 g/dL (3.4-5.0); Albumin/Globulin Ratio 0.7 (0.8-1.8); Bilirubin, Total 1.7 mg/dL (0.1-1.0); Bun/Creatinine Ratio 14.7 (12.0-20.0); Calcium, Blood 9.3 mg/dL (8.5-10.1); Creatinine, Blood 2.17 mg/dL (0.60-1.20); Globulin, Blood 4.2 g/dL (2.2-4.0); Potassium, Blood 6.2 mmol/L (3.5-5.5); Total Protein, Blood 7.3 g/dL (6.4-8.2)
[2021-07-24 20:34] LABS: Source, Urine Clean Catch
[2021-07-24 20:36] LABS: Bilirubin, Urine Neg (Neg); Blood, Urine 1+ (Neg); Glucose Qualitative, Urine Neg (Neg); Ketones, Urine Neg (Neg); Leukocyte Esterase, Urine 1+ (Neg); Nitrite, Urine Neg (Neg); Protein, Urine 2+ (Neg); Specific Gravity, Urine 1.005 (1.003-1.022); Urobilinogen, Urine 1+ (Normal)
[2021-07-24 20:43] LABS: Appearance, Urine Clear (Clear); Color, Urine Yellow (P-Yellow)
[2021-07-24 20:44] LABS: Bacteria Few /hpf; Granular Casts 0-2 /lpf (0); Hyaline Casts 0-2 /lpf (0-2); Mucus Light (0-Heavy); Squamous Epithelial Cells Few /hpf (Few)
[2021-07-25 02:41] LABS: Albumin, Blood 2.6 g/dL (3.4-5.0); Albumin/Globulin Ratio 0.7 (0.8-1.8); Bilirubin, Total 1.3 mg/dL (0.1-1.0); Bun/Creatinine Ratio 15.8 (12.0-20.0); Calcium, Blood 9.9 mg/dL (8.5-10.1); Creatinine, Blood 2.02 mg/dL (0.60-1.20); Globulin, Blood 3.7 g/dL (2.2-4.0); Potassium, Blood 5.4 mmol/L (3.5-5.5); Total Protein, Blood 6.3 g/dL (6.4-8.2)
[2021-07-25 03:21] LABS: BASOPHILS ABSOLUTE AUTO 0.05 K/mm3 (0.00-0.23); BASOPHILS PERCENT AUTO 1 % (0-2); EOSINOPHILS ABSOLUTE AUTO 0.08 K/mm3 (0.00-0.68); EOSINOPHILS PERCENT AUTO 1 % (0-6); Hematocrit 36.5 % (37.0-53.0); Hemoglobin 10.6 g/dL (13.5-17.5); IMMATURE GRAN ABSOLUTE AUTO 0.01 K/mm3 (0.00-0.10); IMMATURE GRAN PERCENT AUTO 0 % (0-1); LYMPHOCYTES ABSOLUTE AUTO 1.09 K/mm3 (0.84-5.20); LYMPHOCYTES PERCENT AUTO 19 % (21-46); MONOCYTES ABSOLUTE AUTO 0.67 K/mm3 (0.16-1.47); MONOCYTES PERCENT AUTO 11 % (4-13); Mean Corpuscular HGB 22.2 pg (26.0-34.0); Mean Corpuscular Volume 77 fL (80-100); Mean Platelet Volume 9.9 fL (9.1-12.4); NEUTROPHILS PERCENT AUTO 68 % (41-73); Platelet Count 312 K/mm3 (150-400); RDW Coefficient Variation 20.4 % (11.7-14.2); RDW Standard Deviation 55.7 fL (35.1-46.3); Red Blood Cell Count 4.77 M/mm3 (4.30-5.90)
--- NOTE | 2021-07-25 07:28 | NUR ---
SUMMARY OBTAINED ORDER FOR LASIX R/T ELEVATED BNP AND PT HAS VOID 250 ML SINCE GIVEN.
[2021-07-25 11:41] LABS: CPK Creatine Kinase 225 U/L (39-308)
[2021-07-25 12:27] LABS: Albumin, Blood 2.8 g/dL (3.4-5.0); Albumin/Globulin Ratio 0.6 (0.8-1.8); Bilirubin, Total 1.4 mg/dL (0.1-1.0); Bun/Creatinine Ratio 17.5 (12.0-20.0); Calcium, Blood 9.3 mg/dL (8.5-10.1); Creatinine, Blood 2.23 mg/dL (0.60-1.20); Globulin, Blood 4.5 g/dL (2.2-4.0); Total Protein, Blood 7.3 g/dL (6.4-8.2)
[2021-07-25 15:55] LABS: Bun/Creatinine Ratio 15.9 (12.0-20.0); Calcium, Blood 8.9 mg/dL (8.5-10.1); Creatinine, Blood 2.46 mg/dL (0.60-1.20)
--- NOTE | 2021-07-25 15:58 | NUR ---
RECIEVED CRITCIAL VALUE FROM KANDICE IN LAB. POTASSIUM 6.0. CALL PLACED TO HOSPITALIST DR. GARCIA. AWAITING CALL BACK. PT DENIES CP AND IS RESTING IN BED AT THIS TIME.
--- NOTE | 2021-07-25 18:54 | NUR ---
SHIFT SUMMARY S/P SOB/CP/HYPERKALEMIA, A/OX4, VSS, TOLERATING PO, INDEPENDENT IN THE ROOM, DENIES PAIN. PT AT BASELINE OTHER THAN POTASSIUM, CRITICAL LAB FOR POTASSIUM ADAM BACK THIS AFTERNOON, GAVE DEXTROSE AND INSULIN ORDERED (SEE EMAR), POTASSIUM REDRAW REMAINED AT 6.0 IT WAS PRIOR, SECOND ROUND OF INSULIN AND DEXTROSE GIVEN AND AWAITING LAB REDRAW. PT STABLE T/O SHIFT. NO OTHER EVENTS THIS SHIFT, CALL LIGHT IN REACH, REPOR GIVEN TO DREA RN.
[2021-07-25 20:00] LABS: Bun/Creatinine Ratio 15.6 (12.0-20.0); Calcium, Blood 8.9 mg/dL (8.5-10.1); Creatinine, Blood 2.57 mg/dL (0.60-1.20); Potassium, Blood 5.8 mmol/L (3.5-5.5)
--- NOTE | 2021-07-26 04:12 | NUR ---
SHIFT SUMMARY NO ACUTE CHANGES THIS SHIFT. PT DENIES CHEST PAIN AND REPORTS HIS OCCASSIONAL SHORTNESS OF BREATH IS AT HIS BASELINE. INDEP IN ROOM. TELE IN PLACE. USES CALL LIGHT APPROPRIATELY.
[2021-07-26 09:56] LABS: Albumin, Blood 2.8 g/dL (3.4-5.0); Anion Gap 8 mmol/L (6-16); Blood Urea Nitrogen 43 mg/dL (8-24); Bun/Creatinine Ratio 17.5 (12.0-20.0); CO2, Blood 25 mmol/L (21-32); Calcium, Blood 9.2 mg/dL (8.5-10.1); Chloride, Blood 103 mmol/L (98-108); Creatinine, Blood 2.46 mg/dL (0.60-1.20); Glomerular Filtration Rate 28 (60-); Glucose, Blood 106 mg/dL (70-99); Phosphorus, Blood 4.5 mg/dL (2.5-4.9); Potassium, Blood 4.9 mmol/L (3.5-5.5); Sodium, Blood 136 mmol/L (136-145)
--- NOTE | 2021-07-26 19:13 | NUR ---
SHIFT SUMMARY S/P CP c HYPERKALEMIA, A/OX 4, VSS, TOLERATING PO, INDEPENDENT IN ROOM, DENIES PAIN. REPORTS MILD SOB WHICH HE STATES IS AT HIS BASELINE, REPORTS NO SENSATION BLE WHICH HE ALSO STATES IS NORMAL FOR HIM. LABS IMPROVED TODAY, NO ACUTE EVENTS, CALL LIGHT IN REACH, REPORT GIVEN TO DREA PAGE.
--- NOTE | 2021-07-27 06:17 | NUR ---
PT HAD UNEVENTFUL NIGHT; VSS. HR PACED PER TELE MONITOR. PT DENIED CP/PRESSURE. LUNGS REMAIN CLEAR/DIM, PT REP WOB AT BASELINE, SATS >90% ON RA. PT VOIDING LARGE AMTS OF CLEAR LIGHT YELLOW URINE.
[2021-07-27 09:28] LABS: Albumin, Blood 3.2 g/dL (3.4-5.0); Anion Gap 9 mmol/L (6-16); Blood Urea Nitrogen 43 mg/dL (8-24); Bun/Creatinine Ratio 18.2 (12.0-20.0); CO2, Blood 30 mmol/L (21-32); Calcium, Blood 9.4 mg/dL (8.5-10.1); Chloride, Blood 98 mmol/L (98-108); Creatinine, Blood 2.36 mg/dL (0.60-1.20); Glomerular Filtration Rate 29 (60-); Glucose, Blood 110 mg/dL (70-99); Phosphorus, Blood 4.7 mg/dL (2.5-4.9); Potassium, Blood 3.7 mmol/L (3.5-5.5); Sodium, Blood 137 mmol/L (136-145)
--- NOTE | 2021-07-27 13:19 | NUR ---
DISCHARGE PT WAS PROVIDED WITH WRITTEN AND VERBAL DISCHARGE INSTRUCTIONS PRIOR TO DISCHARGE. SHE REPORTED UNDERSTANDING. PT ESCORTED OUT IN W/C AT 1320.
--- NOTE | 2021-07-27 13:39 | NUR ---
ATTEMPTED TO RECONCILE HOME MED REC. UNABLE TO REACH [facility] TO REQUEST CURRENT MEDICATION LIST. ON HOLD FOR OVER 30 MINUTES WHILE WAITING FOR PHARMACY STAFF. DR. GARCIA NOTIFIED AND WILL UPDATE HOME MEDICATIONS.
[2021-07-27] MEDS ORDERED: FURO40 PO (14:34)
[2021-07-27] MEDS ORDERED: LOKELMA PO (14:39)
--- NOTE | 2021-07-27 15:11 | NUR ---
DISCHARGE PT PROVIDED WITH WRITTEN AND VERBAL DISCHARGE INSTRUCTIONS, HE REPORTED UNDERSTANDING. DIET EDUCATION PROVIDED. PT EDUCATED ABOUT NEW MEDICATIONS AND DOSAGE CHANGES OF PREVIOUSLY TAKEN MEDS. PT REPORTED UNDERSTANDING AND VERBALIZED THAT HE HAS A FOLLOW-UP SCHEDULED WITH DR. MILTON ON 08/01 AND WILL FOLLOW UP WITH HIS PCP IN 1 WEEK. PT REQUESTED TO AMBULATE OUT OF THE HOSPITAL, HE DENIED NEED FOR W/C.
== END 2021-07-27 15:00 | disposition home or self-care (01) | DRG 292 ==
LOC: ER 18:27 → ERHOLD 18:28 → SURS 07-25 02:23
PROVIDERS: Emergency Medicine; Internal Medicine; ADMIT Internal Medicine
DX: I50.23 Acute on chronic systolic (congestive) heart failure (principal); N17.9 Acute kidney failure, unspecified; I42.9 Cardiomyopathy, unspecified; E87.5 Hyperkalemia; I25.10 Atherosclerotic heart disease of native coronary artery without angina pectoris; E78.5 Hyperlipidemia, unspecified; E11.22 Type 2 diabetes mellitus with diabetic chronic kidney disease; N18.30 Chronic kidney disease, stage 3 unspecified; Z95.0 Presence of cardiac pacemaker; E11.649 Type 2 diabetes mellitus with hypoglycemia without coma; E66.9 Obesity, unspecified; D50.9 Iron deficiency anemia, unspecified; Z91.030 Bee allergy status; Z98.890 Other specified postprocedural states; Z68.33 Body mass index [BMI] 33.0-33.9, adult; Z95.5 Presence of coronary angioplasty implant and graft
CPT/HCPCS: 36415; 71045; 76705; 80048; 80053; 80069; 81001; 82550; 82947; 83880; 84484; 85025; 93005; 93010; 96372; 96374; 96375; 99285-25; A9270; G0378; J0610; J1644; J1815; J1940; J2405; J7060

== ENCOUNTER → 2021-08-02 | Outpatient (CLI) | payer OTHER ==
[~2021-08-02] MED LIST changes: +LOKELMA PO
[2021-08-02 18:28] LABS: Creatinine, Urine Random 47.5 mg/dL (27.00-270.00); Protein, Urine Random 18.3 mg/dL (0.0-11.9); Protein/Creat Ratio, Ur Random 0.4
== END | disposition home or self-care (01) ==
LOC: LAB SHORT 11:08
PROVIDERS: Internal Medicine Nephrology
DX: N18.32 Chronic kidney disease, stage 3b (principal)
CPT/HCPCS: 82570; 84156

== ENCOUNTER 2021-09-18 15:46 | Emergency (ER) | payer OTHER ==
[~2021-09-18] VITALS: Ht 180.3 cm; Wt 113.4 kg
[2021-09-18 16:13] LABS: BASOPHILS ABSOLUTE AUTO 0.02 K/mm3 (0.00-0.23); BASOPHILS PERCENT AUTO 0 % (0-2); EOSINOPHILS ABSOLUTE AUTO 0.07 K/mm3 (0.00-0.68); EOSINOPHILS PERCENT AUTO 1 % (0-6); Hematocrit 33.4 % (37.0-53.0); Hemoglobin 9.9 g/dL (13.5-17.5); IMMATURE GRAN ABSOLUTE AUTO 0.01 K/mm3 (0.00-0.10); IMMATURE GRAN PERCENT AUTO 0 % (0-1); LYMPHOCYTES ABSOLUTE AUTO 0.74 K/mm3 (0.84-5.20); LYMPHOCYTES PERCENT AUTO 12 % (21-46); MONOCYTES ABSOLUTE AUTO 0.42 K/mm3 (0.16-1.47); MONOCYTES PERCENT AUTO 7 % (4-13); Mean Corpuscular HGB 21.4 pg (26.0-34.0); Mean Corpuscular HGB Conc 29.6 g/dL (31.5-36.5); Mean Corpuscular Volume 72 fL (80-100); Mean Platelet Volume 9.8 fL (9.1-12.4); NEUTROPHILS ABSOLUTE AUTO 5.18 K/mm3 (1.96-9.15); NEUTROPHILS PERCENT AUTO 80 % (41-73); Platelet Count 309 K/mm3 (150-400); RDW Coefficient Variation 19.7 % (11.7-14.2); RDW Standard Deviation 48.4 fL (35.1-46.3); Red Blood Cell Count 4.63 M/mm3 (4.30-5.90); White Blood Cell Count 6.44 K/mm3 (4.00-11.30)
[2021-09-18 16:23] LABS: Albumin, Blood 2.8 g/dL (3.4-5.0); Albumin/Globulin Ratio 0.7 (0.8-1.8); Bilirubin, Total 1.8 mg/dL (0.1-1.0); Calcium, Blood 8.8 mg/dL (8.5-10.1); Creatinine, Blood 2.23 mg/dL (0.60-1.20); Globulin, Blood 4.3 g/dL (2.2-4.0); Potassium, Blood 4.1 mmol/L (3.5-5.5); Total Protein, Blood 7.1 g/dL (6.4-8.2)
== END 2021-09-18 17:34 | disposition home or self-care (01) ==
LOC: ER 15:46
PROVIDERS: Emergency Medicine
DX: R07.9 Chest pain, unspecified (principal); J90 Pleural effusion, not elsewhere classified; I50.9 Heart failure, unspecified; E11.9 Type 2 diabetes mellitus without complications; Z95.0 Presence of cardiac pacemaker; Z95.5 Presence of coronary angioplasty implant and graft; Z79.899 Other long term (current) drug therapy; Z79.01 Long term (current) use of anticoagulants; Z91.038 Other insect allergy status
CPT/HCPCS: 71046; 80053; 84484; 85025

== ENCOUNTER 2021-10-31 20:36 | Inpatient (IN) | payer OTHER ==
[~2021-10-31] VITALS: Ht 180.3 cm; Wt 112.3 kg
[2021-10-31 21:53] LABS: BASOPHILS ABSOLUTE AUTO 0.03 K/mm3 (0.00-0.23); BASOPHILS PERCENT AUTO 1 % (0-2); EOSINOPHILS ABSOLUTE AUTO 0.04 K/mm3 (0.00-0.68); EOSINOPHILS PERCENT AUTO 1 % (0-6); Hematocrit 33.3 % (37.0-53.0); IMMATURE GRAN ABSOLUTE AUTO 0.02 K/mm3 (0.00-0.10); IMMATURE GRAN PERCENT AUTO 0 % (0-1); LYMPHOCYTES ABSOLUTE AUTO 0.34 K/mm3 (0.84-5.20); LYMPHOCYTES PERCENT AUTO 6 % (21-46); MONOCYTES ABSOLUTE AUTO 0.68 K/mm3 (0.16-1.47); MONOCYTES PERCENT AUTO 11 % (4-13); Mean Corpuscular Volume 70 fL (80-100); Mean Platelet Volume 9.5 fL (9.1-12.4); NEUTROPHILS PERCENT AUTO 82 % (41-73); Platelet Count 250 K/mm3 (150-400); RDW Coefficient Variation 20.8 % (11.7-14.2); Red Blood Cell Count 4.77 M/mm3 (4.30-5.90); White Blood Cell Count 6.11 K/mm3 (4.00-11.30)
[2021-10-31 22:17] LABS: Albumin, Blood 2.9 g/dL (3.4-5.0); Albumin/Globulin Ratio 0.7 (0.8-1.8); Bilirubin, Total 2.1 mg/dL (0.1-1.0); Bun/Creatinine Ratio 23.8 (12.0-20.0); Calcium, Blood 8.8 mg/dL (8.5-10.1); Creatinine, Blood 2.39 mg/dL (0.60-1.20); Globulin, Blood 4.4 g/dL (2.2-4.0); Potassium, Blood 4.8 mmol/L (3.5-5.5); Total Protein, Blood 7.3 g/dL (6.4-8.2)
[2021-10-31 23:25] LABS: Influenza A, PCR NEGATIVE (NEGATIVE); Influenza B, PCR NEGATIVE (NEGATIVE); Resp Syncytial Virus, PCR NEGATIVE (NEGATIVE); SARS-Cov-2 (COVID-19) PCR, MMC NEGATIVE (NEGATIVE)
[2021-11-01] MEDS ORDERED: GLIP5 PO (02:45)
[2021-11-01] MEDS ORDERED: METO25ER PO (02:45)
--- NOTE | 2021-11-01 03:00 | NUR ---
PT ARRIVES TO UNIT VIA GURNEY AND TRANSFERS INDEPENDENTLY TO BED. HE IS AOX4/4, IN NAD. PT IS MILDLY TACHYPNEIC, BUT DENIES SOB AT THIS TIME. HE STATES SOB IS WHAT BROUGHT HIM TO THE ED LAST NIGHT, BUT IT IS IMPROVED. LS CLEAR, DIM BASES. 100% SPO2 ON RA. ST PACED RHYTHM ON MONITOR. PT HAS DUAL CHAMBER ICD PLACED IN MAY THIS YEAR DUE TO BRADYCARDIA. HE IS TYPE II DM, STATES HE HASN'T EATEN ANYTHING SINCE SUNDAY NIGHT. PT DENIES PAIN, ONLY COMPLAINT IS DRY, OCC PRODUCTIVE COUGH. WILL SEND SPUTUM SPECIMEN WHEN COLLECTED.
[2021-11-01 03:51] LABS: BASOPHILS ABSOLUTE AUTO 0.02 K/mm3 (0.00-0.23); BASOPHILS PERCENT AUTO 0 % (0-2); EOSINOPHILS ABSOLUTE AUTO 0.01 K/mm3 (0.00-0.68); EOSINOPHILS PERCENT AUTO 0 % (0-6); Hematocrit 36.7 % (37.0-53.0); Hemoglobin 10.7 g/dL (13.5-17.5); IMMATURE GRAN ABSOLUTE AUTO 0.01 K/mm3 (0.00-0.10); IMMATURE GRAN PERCENT AUTO 0 % (0-1); LYMPHOCYTES ABSOLUTE AUTO 0.66 K/mm3 (0.84-5.20); LYMPHOCYTES PERCENT AUTO 11 % (21-46); MONOCYTES PERCENT AUTO 13 % (4-13); Mean Corpuscular HGB Conc 29.2 g/dL (31.5-36.5); Mean Corpuscular Volume 72 fL (80-100); Mean Platelet Volume 9.2 fL (9.1-12.4); NEUTROPHILS ABSOLUTE AUTO 4.67 K/mm3 (1.96-9.15); NEUTROPHILS PERCENT AUTO 76 % (41-73); Platelet Count 258 K/mm3 (150-400); RDW Coefficient Variation 21.2 % (11.7-14.2); RDW Standard Deviation 52.6 fL (35.1-46.3); Red Blood Cell Count 5.09 M/mm3 (4.30-5.90); White Blood Cell Count 6.17 K/mm3 (4.00-11.30)
[2021-11-01 04:24] LABS: Albumin/Globulin Ratio 0.7 (0.8-1.8); Bilirubin, Total 2.2 mg/dL (0.1-1.0); Bun/Creatinine Ratio 22.3 (12.0-20.0); Creatinine, Blood 2.38 mg/dL (0.60-1.20); Globulin, Blood 4.6 g/dL (2.2-4.0); Potassium, Blood 4.5 mmol/L (3.5-5.5); Total Protein, Blood 7.6 g/dL (6.4-8.2)
[2021-11-01] MEDS ORDERED: CLOP75 PO (04:30)
[2021-11-01] MEDS ORDERED: ELIQUIS5 M2 PO (04:30)
[2021-11-01] MEDS ORDERED: LOSA25 PO (04:30)
[2021-11-01] MEDS ORDERED: FURO40 PO (04:31)
[2021-11-01] MEDS ORDERED: LANS30EC PO (04:31)
[2021-11-01] MEDS ORDERED: POTCHL20ER PO (04:32)
--- NOTE | 2021-11-01 05:46 | NUR ---
NO SIGNIFICANT CHANGE SINCE ARRIVAL TO UNIT. PT HAS SLEPT FOR SHORT PERIODS, HAS NO COMPLAINTS AT THIS TIME. HE CONTINUES TO HAVE DRY COUGH. VSS WITHOUT LEVOPHED. WILL CONTINUE TO MONITOR AND REPORT TO ONCOMING SHIFT.
[2021-11-01 06:15] LABS: CPK Creatine Kinase 198 U/L (39-308)
[2021-11-01 08:06] LABS: International Normalized Ratio 1.34; Prothrombin Time Results 13.8 Sec (9.7-11.5)
[2021-11-01 14:02] LABS: CPK Creatine Kinase 178 U/L (39-308)
--- NOTE | 2021-11-01 17:31 | NUR ---
SHIFT SUMMARY NO ACUTE CHANGES THIS SHIFT. PT HAS SLEPT OFF AND ON THROUGHOUT THE SHIFT. WHEN AWAKE PT IS ALERT AND ORIENTED. PT DENIES PAIN OR SOB. PT WITH OCCASIONAL COUGHING FITS WITHOUT DESATURATION. PT ON ROOM AIR. VITAL SIGNS STABLE. IV'S SALINE LOCKED. PT USING URINAL INDEPENDENTLY TO VOID. PT REPOSITIONS SELF IN BED FOR COMFORT. WILL CONTINUE TO MONITOR AND REPORT OFF TO ONCOMING RN.
--- NOTE | 2021-11-01 21:12 | NUR ---
ASSUMED CARE AT 1900 PATIENT IS ALERT AND ORIENTED X4. 02 SATS 45% ON RA, PATIENT STATES SOME SOB, WITH A PRODUCTIVE COUGH, SMALL AMOUNT OF SPUTUM. MEDICATED PER EMAR FOR COUGH. LS CLEAR, R LUNG DIMINISHED. HR PACED, 90s-100. BP STABLE. DENIES CP/PRESSURE. USES URINAL, REPOSITIONS SELF IN BED. DENIES PAIN. BLOOD CULTURE RESULTS CALLED TO DR. AMOS MORAN IN REACH. SEE SHIFT ASSESSMENT FOR MORE DETAIL.
[2021-11-01 22:16] LABS: BASOPHILS ABSOLUTE AUTO 0.04 K/mm3 (0.00-0.23); BASOPHILS PERCENT AUTO 1 % (0-2); EOSINOPHILS ABSOLUTE AUTO 0.12 K/mm3 (0.00-0.68); EOSINOPHILS PERCENT AUTO 2 % (0-6); Hematocrit 35.6 % (37.0-53.0); Hemoglobin 10.5 g/dL (13.5-17.5); IMMATURE GRAN ABSOLUTE AUTO 0.01 K/mm3 (0.00-0.10); IMMATURE GRAN PERCENT AUTO 0 % (0-1); LYMPHOCYTES ABSOLUTE AUTO 0.85 K/mm3 (0.84-5.20); LYMPHOCYTES PERCENT AUTO 16 % (21-46); MONOCYTES ABSOLUTE AUTO 0.68 K/mm3 (0.16-1.47); MONOCYTES PERCENT AUTO 13 % (4-13); Mean Corpuscular HGB 21.2 pg (26.0-34.0); Mean Corpuscular HGB Conc 29.5 g/dL (31.5-36.5); Mean Corpuscular Volume 72 fL (80-100); Mean Platelet Volume 9.5 fL (9.1-12.4); NEUTROPHILS ABSOLUTE AUTO 3.64 K/mm3 (1.96-9.15); NEUTROPHILS PERCENT AUTO 68 % (41-73); Platelet Count 258 K/mm3 (150-400); RDW Coefficient Variation 21.4 % (11.7-14.2); RDW Standard Deviation 53.3 fL (35.1-46.3); Red Blood Cell Count 4.96 M/mm3 (4.30-5.90); White Blood Cell Count 5.34 K/mm3 (4.00-11.30)
[2021-11-01 22:49] LABS: Albumin, Blood 2.7 g/dL (3.4-5.0); Anion Gap 13 mmol/L (6-16); Blood Urea Nitrogen 54 mg/dL (8-24); Bun/Creatinine Ratio 21.1 (12.0-20.0); CO2, Blood 17 mmol/L (21-32); Calcium, Blood 8.8 mg/dL (8.5-10.1); Chloride, Blood 104 mmol/L (98-108); Creatinine, Blood 2.56 mg/dL (0.60-1.20); Glomerular Filtration Rate 29 (60-); Glucose, Blood 143 mg/dL (70-99); Phosphorus, Blood 4.2 mg/dL (2.5-4.9); Sodium, Blood 134 mmol/L (136-145)
--- NOTE | 2021-11-01 23:17 | NUR ---
APPROX 2134- PATIENT CALLED THIS RN TO ROOM COMPLAINING OF BEING LIGHT HEADED STATING HE WAS GOING TO PASS OUT. PLACED PATIENT ON TELE, VITALS DONE AND PATIENT HYPOTENSIVE. SPOKE WITH DR. BURROWS, STARTED PATIENT ON 250 MLS BOLUS OF NS. PATIENT DIAPHORETIC COMPLAINING OF LEFT ARM, ABDOMINAL PAIN, AND NAUSEA. MEDICATED FOR NAUSEA PER EMAR. DENIES CP/PRESSURE. RR INCREASED 20s-30. 02 SATS REMAINED >93% ON RA. PATIENT REMAINED HYPOTENSIVE, CHANGED TO ICU STATUS AND LEVOPHED STARTED, 2ND IV INSERTED. CHEST X-RAY AND CT OF ABDOMEN, AND EKG COMPLETED, DR. BURROWS AWARE OF RESULTS. AFTER CT PATIENTS 02 SATS DROPPED TO 80%, PLACED ON 3L NC, 02 SATS NOW 95-100%.
[2021-11-02 04:24] LABS: BASOPHILS ABSOLUTE AUTO 0.02 K/mm3 (0.00-0.23); BASOPHILS PERCENT AUTO 0 % (0-2); EOSINOPHILS PERCENT AUTO 0 % (0-6); Hematocrit 36.7 % (37.0-53.0); Hemoglobin 10.7 g/dL (13.5-17.5); IMMATURE GRAN ABSOLUTE AUTO 0.02 K/mm3 (0.00-0.10); IMMATURE GRAN PERCENT AUTO 0 % (0-1); LYMPHOCYTES PERCENT AUTO 6 % (21-46); MONOCYTES PERCENT AUTO 11 % (4-13); Mean Corpuscular HGB 20.8 pg (26.0-34.0); Mean Corpuscular HGB Conc 29.2 g/dL (31.5-36.5); Mean Corpuscular Volume 71 fL (80-100); Mean Platelet Volume 9.4 fL (9.1-12.4); NEUTROPHILS ABSOLUTE AUTO 6.64 K/mm3 (1.96-9.15); NEUTROPHILS PERCENT AUTO 82 % (41-73); Platelet Count 278 K/mm3 (150-400); RDW Coefficient Variation 21.1 % (11.7-14.2); RDW Standard Deviation 51.7 fL (35.1-46.3); Red Blood Cell Count 5.15 M/mm3 (4.30-5.90); White Blood Cell Count 8.08 K/mm3 (4.00-11.30)
[2021-11-02 04:45] LABS: Albumin, Blood 2.9 g/dL (3.4-5.0); Albumin/Globulin Ratio 0.7 (0.8-1.8); Bilirubin, Total 2.7 mg/dL (0.1-1.0); Bun/Creatinine Ratio 24.4 (12.0-20.0); Calcium, Blood 9.1 mg/dL (8.5-10.1); Creatinine, Blood 2.5 mg/dL (0.60-1.20); Potassium, Blood 4.9 mmol/L (3.5-5.5); Total Protein, Blood 6.9 g/dL (6.4-8.2)
--- NOTE | 2021-11-02 05:21 | NUR ---
SHIFT SUMMARY PATIENT REMAINS ALERT AND ORIENTED X4. 02 SATS 94% ON RA, 2L AT TIMES WHILE SLEEPING TO MAINTAIN SATS. PRODUCTIVE COUGH WITH SMALL AMOUNT OF GREEN THICK SPUTUM. BP STABLE WITH LEVO OFF, PATIENT STATES HE FEELS A LITTLE BETTER AND NOT LIGHT HEADED. HR PACED 90s-100. DENIES CP/PRESSURE. INDEPENDENT IN BED. USES URINAL. CALL LIGHT IN REACH.
--- NOTE | 2021-11-02 07:44 | NUR ---
ASSUMPTION OF CARE RECEIVED REPORT FROM DEONTE PAGE AT 0705, ASSUMED CARE OF PATIENT. PATIENT A/O IN BED. DENIED NEEDS OR DISCOMFORTS. 2L [address], DESATS TO 70% ON RA. CURRENT SP02 99% WITH 02. VITALS STABLE, LEVOPHED NOT REQUIRED AT THIS TIME. VPACED WITH RATE IN 90'S. WILL REVIEW ORDERS AND TREAT PRESCRIBED.
--- NOTE | 2021-11-02 09:09 | NUR ---
RECEIVED COMMUNICATION THAT THORACENTESIS WILL BE PLANNED FOR THIS AFTERNOON. VERIFIED WITH PHYSICAIN REGARDING ABD U/S, NO DECISION MADE YET. MORNING MEDICATIONS ON HOLD UNTIL AFTER THORACENTESIS, BREAKFAST TRAY PROVIDED. PATIENT UPDATED REGARDING PLAN FOR PROCEDURE AND ECHO. VERBALIZED UNDERSTANDING.
--- NOTE | 2021-11-02 12:09 | NUR ---
REASSESSMENT NO ACUTE CHANGES TO PREVIOUS ASSESSMENT. PATIENT SITTING UP IN BED, EATING LUNCH INDEPENDENTLY. UTILIZES URINAL AT BEDSIDE INDEPENDENTLY. VITALS REMAIN STABLE WITH 2L 02 VIA NC. PATIENT CONTINUES TO DENY NEEDS OR DISCOMFORTS. CALL LIGHT IN REACH.
[2021-11-02 15:20] LABS: Automated BF RBC Count 0.265 M/mm3 (0-0); Automated BF WBC Count 0.287 K/mm3 (0-999); Body Fluid WBC Count 287 /mm3 (0-999); RBC Count, Body Fluid 265000 /mm3 (0-0)
[2021-11-02 15:54] LABS: Appearance, Body Fluid Cloudy (Clear); Color, Body Fluid Red (None-Yellow)
[2021-11-02 16:01] LABS: Lactate Dehydrogenase, Body Fl 228 U/L
[2021-11-02 16:05] LABS: Protein, Body Fluid 1.9 g/dL
[2021-11-02 16:06] LABS: Total Cell Count, Body Fluid 100
--- NOTE | 2021-11-02 16:07 | NUR ---
REASSESSMENT NO ACUTE CHANGES FROM PREVIOUS ASSESSMENT. THORACENTESIS COMPLETED. ASSISTED PATIENT WITH BED BATH. CURRENTLY ON ROOM AIR, VITALS STABLE WITH SP02 ABOVE 95%. CALL LIGHT IN REACH.
[2021-11-02 16:11] LABS: Albumin, Body Fluid 0.8 g/dL
--- NOTE | 2021-11-02 17:43 | NUR ---
SHIFT SUMMARY PATIENT ALERT AND ORIENTED, INDEPENDENT WITH OWN CARE. ASSISTED WITH BED BATH. ECHO COMPLETED, THORACENTESIS COMPLETED IN AFTERNOON, OXYGEN REMOVED AFTER THORACENTESIS COMPLETED WITH SP02 ABOVE 95%. HELD METOPROLOL FOR LOW B/P AND PLAVIX FOR PROCEDURE. TOLERATED PO INTAKE, UTILIZED URINAL NEEDED. CONTINUED TO DENY PAIN AND OTHER DISCOMFORTS. FREQUENT NON-PRODUCTIVE COUGH, MEDICATED ONCE WITH PRN. WILL REPORT TO ONCOMING RN.
--- NOTE | 2021-11-02 21:24 | NUR ---
PT. HAD A HYPOTENSIVE EPISODE THAT REQUIRED LEVO TO CORRECT. SYSTOLIC OF MID 90S DROPPED TO SYSTOLIC OF 60. LEVO STARTED ON THE PATIENT AND BPS IS MAINTAINING A SYSTOLIC OF 90 AND MAP ABOVE 65 OF [address] LEVO[address] BURROWS CALLED AND INFORMED AND SHE BELIEVES IT MAY BE A REACTION TO A PRESCRIBED ANTIBIOTIC AND WILL REVIEW WITH DAY TEAM TOMORROW TO CONSIDER ALTERNATE OPTIONS THE MED IS NOT DUE AGAIN FOR 24HRS. PT. MAINTAINING GOOD PRESSURES OF NOW AND I WILL TRY TO TITRATE LEVO DOWN TONIGHT.
[2021-11-03 03:47] LABS: BASOPHILS ABSOLUTE AUTO 0.03 K/mm3 (0.00-0.23); BASOPHILS PERCENT AUTO 0 % (0-2); EOSINOPHILS ABSOLUTE AUTO 0.02 K/mm3 (0.00-0.68); EOSINOPHILS PERCENT AUTO 0 % (0-6); Hematocrit 36.5 % (37.0-53.0); Hemoglobin 10.9 g/dL (13.5-17.5); IMMATURE GRAN ABSOLUTE AUTO 0.04 K/mm3 (0.00-0.10); IMMATURE GRAN PERCENT AUTO 1 % (0-1); LYMPHOCYTES ABSOLUTE AUTO 0.56 K/mm3 (0.84-5.20); LYMPHOCYTES PERCENT AUTO 7 % (21-46); MONOCYTES ABSOLUTE AUTO 0.69 K/mm3 (0.16-1.47); MONOCYTES PERCENT AUTO 9 % (4-13); Mean Corpuscular HGB 21.1 pg (26.0-34.0); Mean Corpuscular HGB Conc 29.9 g/dL (31.5-36.5); Mean Corpuscular Volume 71 fL (80-100); Mean Platelet Volume 9.3 fL (9.1-12.4); NEUTROPHILS ABSOLUTE AUTO 6.62 K/mm3 (1.96-9.15); NEUTROPHILS PERCENT AUTO 83 % (41-73); Platelet Count 288 K/mm3 (150-400); RDW Coefficient Variation 21.3 % (11.7-14.2); RDW Standard Deviation 52.3 fL (35.1-46.3); Red Blood Cell Count 5.17 M/mm3 (4.30-5.90); White Blood Cell Count 7.96 K/mm3 (4.00-11.30)
[2021-11-03 04:09] LABS: Albumin, Blood 2.7 g/dL (3.4-5.0); Albumin/Globulin Ratio 0.7 (0.8-1.8); Bilirubin, Total 2.3 mg/dL (0.1-1.0); Bun/Creatinine Ratio 25.5 (12.0-20.0); Calcium, Blood 8.9 mg/dL (8.5-10.1); Creatinine, Blood 2.47 mg/dL (0.60-1.20); Globulin, Blood 4.1 g/dL (2.2-4.0); Potassium, Blood 5.3 mmol/L (3.5-5.5); Total Protein, Blood 6.8 g/dL (6.4-8.2)
--- NOTE | 2021-11-03 06:01 | NUR ---
PT. DID WELL OVERNIGHT EXCEPT A HYPOTENSIVE EPISODE AROUND 2129. PT. REQUIRED LEVO DURING THE EPISODE BUT WAS ABLE TO BE WEANED BACK OFF OVERNIGHT. PT. CURRENTLY IS NOT ON ANY PRESSORS AND IS MAINTAINING A SYSTOLIC OF GREATER THAN 90 AND A MAP GREATER THAN 65. PT. VOIDED TWICE TONIGHT IN THE URINAL FOR A UOP OF AROUND 700 TONIGHT. PT. RESTING COMFORTABLY AT THIS TIME.
--- NOTE | 2021-11-03 08:03 | NUR ---
ASSUMPTION OF CARE RECEIVED REPORT FROM ALDO PAGE AT 0715. PATIENT IN BED, EASILY AWOKE. A/O, DENIED PAIN OR DISCOMFORTS. STRONG, MOIST NON-PRODUCTIVE COUGH NOTED. ON ROOM AIR WITH SP02 ABOVE 95%. VPACED WITH RATE STABLE, B/P WITH MAP ABOVE 65. PHYSICIAN ROUNDED. DISCUSSED METOPROLOL DOSE, ANTIBIOTICS, AND BLOOD GLUCOSE. NO VERBAL ORDERS RECEIVED. WILL TREAT PRESCRIBED.
[2021-11-03 10:53] LABS: Source, Urine Clean Catch
[2021-11-03 10:57] LABS: Appearance, Urine Clear (Clear); Bilirubin, Urine Neg (Neg); Blood, Urine 1+ (Neg); Color, Urine Yellow (P-Yellow); Glucose Qualitative, Urine Neg (Neg); Ketones, Urine Neg (Neg); Leukocyte Esterase, Urine Neg (Neg); Nitrite, Urine Neg (Neg); Protein, Urine 1+ (Neg); Urobilinogen, Urine NORM (Normal)
[2021-11-03 11:23] LABS: Bacteria Not Seen /hpf; Red Blood Cells, Urine 0-2 /hpf (0-2); Squamous Epithelial Cells Rare /hpf (Few); White Blood Cells, Urine Not Seen /hpf (0-5)
--- NOTE | 2021-11-03 11:59 | NUR ---
REASSESSMENT NO ACUTE CHANGES FROM PREVIOUS ASSESSMENT. PATIENT CONTINUES TO DENY DISCOMFORTS. CHANGED CXR FROM 2 VIEW TO 1 VIEW AFTER VERIFIYING WITH DR. LOPES. URINE SENT, STILL PENDING SPUTUM. CBG STABLE. CALL LIGHT IN REACH.
--- NOTE | 2021-11-03 16:30 | NUR ---
REASSESSMENT NO ACUTE CHANGES FROM PREVIOUS ASSESSMENT. PATIENT CONTINUES WITH STRONG COUGH, NOW PRODUCTIVE. SPUTUM CULTURE COLLECTED ORDERED. PATIENT CONTINUES TO DENY PAIN AND OTHER DISCOMFORTS. VITALS STABLE, 2L 02 VIA NC REPLACED PER DESAT WHILE ASLEEP. CURRENTLY SP02 ABOVE 95%. CBG PERFORMED, WILL TREAT ORDERED. CALL LIGHT IN REACH.
--- NOTE | 2021-11-03 17:53 | NUR ---
SHIFT SUMMARY PATIENT REMAINED WITHOUT PAIN OR NAUSEA. STRONG COUGH PERSISTED. URINE, SPUTUM, AND BLOOD CULTURES COLLECTED. CXR COMPLETED. METOPROLOL HELD AND DR. LOPES NOTIFIED DUE TO HYPOTENSION. 2L 02 VIA NC PLACED WHEN PATIENT RESTS DUE TO LOW SP02. CALL LIGHT WITHIN REACH. WILL REPORT TO ONCOMING RN.
--- NOTE | 2021-11-03 20:44 | NUR ---
ASSUMED CARE. AOx3, makes needs known. LS dim in bases, hacking cough any time he even talks. Hot tea was given. Called MD sotelo ordered. Clear secreations occationally. Denies chest pain. BS check 160, gave 1 unit of insulin. Antibotic given. IV's flushed. HR paced 100%. Tachy 100's. SOB occationally. Uses urinal at bedside. Denies any other needs, just wants to rest. Call light is in reach.
[2021-11-04 04:04] LABS: BASOPHILS ABSOLUTE AUTO 0.03 K/mm3 (0.00-0.23); BASOPHILS PERCENT AUTO 0 % (0-2); EOSINOPHILS ABSOLUTE AUTO 0.13 K/mm3 (0.00-0.68); EOSINOPHILS PERCENT AUTO 2 % (0-6); Hematocrit 35.9 % (37.0-53.0); Hemoglobin 10.6 g/dL (13.5-17.5); IMMATURE GRAN ABSOLUTE AUTO 0.02 K/mm3 (0.00-0.10); IMMATURE GRAN PERCENT AUTO 0 % (0-1); LYMPHOCYTES ABSOLUTE AUTO 0.81 K/mm3 (0.84-5.20); LYMPHOCYTES PERCENT AUTO 12 % (21-46); MONOCYTES ABSOLUTE AUTO 0.59 K/mm3 (0.16-1.47); MONOCYTES PERCENT AUTO 9 % (4-13); Mean Corpuscular HGB Conc 29.5 g/dL (31.5-36.5); Mean Corpuscular Volume 71 fL (80-100); Mean Platelet Volume 9.2 fL (9.1-12.4); NEUTROPHILS ABSOLUTE AUTO 5.35 K/mm3 (1.96-9.15); NEUTROPHILS PERCENT AUTO 77 % (41-73); Platelet Count 268 K/mm3 (150-400); RDW Coefficient Variation 21.2 % (11.7-14.2); RDW Standard Deviation 53.1 fL (35.1-46.3); Red Blood Cell Count 5.04 M/mm3 (4.30-5.90); White Blood Cell Count 6.93 K/mm3 (4.00-11.30)
[2021-11-04 04:24] LABS: Albumin, Blood 2.7 g/dL (3.4-5.0); Albumin/Globulin Ratio 0.6 (0.8-1.8); Bun/Creatinine Ratio 28.6 (12.0-20.0); Calcium, Blood 8.8 mg/dL (8.5-10.1); Creatinine, Blood 2.1 mg/dL (0.60-1.20); Globulin, Blood 4.2 g/dL (2.2-4.0); Potassium, Blood 4.8 mmol/L (3.5-5.5); Total Protein, Blood 6.9 g/dL (6.4-8.2)
--- NOTE | 2021-11-04 05:35 | NUR ---
SHIFT SUMMARY: Pt has remained stable t/o night. Independent in his mobility and use of urinal. LS dim, cough is harsh and occationally productive with clear sputum. Sats have remained >95% on RA. V-Paced 100%. BP has been stable with no hypotensive episodes. MAP has remained >70. Edema present in BLE, weight jumped by 2kg this am. Afebrile. No pain. Denied any complaints. Will report to dayshift. CAll Light is in reach.
--- NOTE | 2021-11-04 17:18 | NUR ---
SHIFT SUMMARY NO ACUTE CHANGES THIS SHIFT. PT HAS REMAINED ALERT AND ORIENTED WHEN AWAKE. PT HAS DENIED PAIN OR SOB THIS SHIFT. VITAL SIGNS STABLE. PT REMAINS ON ROOM AIR. PT WITH EPISODES OF COUGHING FITS AT TIMES. PT USING URINAL INDEPENDENTLY. WILL CONTINUE TO MONITOR AND REPORT OFF TO ONCOMING RN.
--- NOTE | 2021-11-04 20:46 | NUR ---
ASSUMED CARE. Just finished dinner, at 75%. Very tired and fatiqued. Currently in a coughing spasm fit. Offered cough syrup, denied. Gave warm tea which helped. LS clear, diminished mid to lower lobes on the right side. Edema noted to BLE +1. Denies any change in dyspnea. Sats >95% on RA. HR V-Paced rate in 100's. BP soft with MAP >70. Urinal emptied raman color 600cc. No skin breakdown. Appetite fair. Call light in reach. Will continue to monitor.
--- NOTE | 2021-11-04 22:02 | NUR ---
Report given to Juan PAGE for transfer to room Med 312.
--- NOTE | 2021-11-04 22:26 | NUR ---
Patient transferred at 2218.
--- NOTE | 2021-11-05 00:49 | NUR ---
PATIENT TRANSFER: REPORT WAS GIVEN BY KAYLEE HARTMANN. PT IS ARRIVED TO THE FLOOR VIA W/C AND WAS ABLE TO TRANSFER TO THE BED. VSS. PT DID HAVE A COUGH ONCE ON THE FLOOR, BUT HE DID NOT WANT ANY PRN MEDS IN HIS EMAR. WE'LL CONTINUE TO MONITOR.
--- NOTE | 2021-11-05 05:27 | NUR ---
SHIFT SUMMARY: PT IS A/OX4. THERE ARE NO CHANGES TO REPORT SINCE HIS TX FROM ICU. HE USES THE CALL BUTTON APPROPRIATELY AND HAD NO C/O THIS SHIFT. WE WILL CONTINUE TO MONITOR THE REST OF THE SHIFT.
--- NOTE | 2021-11-05 18:32 | NUR ---
DAY SHIFT SUMMARY 51 YR OLD MALE ADMITTED WITH SEPSIS. A/OX3-4, INDEPENDENT IN ROOM. PT HAS A HACKING COUGH, HOWEVER, REFUSES MEDICATIONS FOR COUGH STATING THEY DO NOT WORK. MEDS TAKEN WHOLE WITH WATER. PT ON RA, INDEPENDENT WITH URINAL. CBG ACHS WITH COVERAGE. CALL LIGHT WITHIN REACH.
== END 2021-11-05 20:50 | disposition home or self-care (01) | DRG 871 ==
LOC: ER 20:36 → ICUW 11-01 00:38 → ERHOLD 11-01 00:38 → ICUW 11-01 02:15 → MEDS 11-04 22:26
PROVIDERS: Family Medicine; Student in an Organized Health Care Education/Training Program; ADMIT Internal Medicine
PROC: 3E03329 Introduction of Other Anti-infective into Peripheral Vein, Percutaneous Approach (ICD-10-PCS; 2021-11-01)
PROC: 3E033XZ Introduction of Vasopressor into Peripheral Vein, Percutaneous Approach (ICD-10-PCS; 2021-11-01)
PROC: 0W993ZX Drainage of Right Pleural Cavity, Percutaneous Approach, Diagnostic (ICD-10-PCS; principal; 2021-11-02)
DX: A41.9 Sepsis, unspecified organism (principal); J18.9 Pneumonia, unspecified organism; I50.22 Chronic systolic (congestive) heart failure; N17.9 Acute kidney failure, unspecified; I42.9 Cardiomyopathy, unspecified; J91.8 Pleural effusion in other conditions classified elsewhere; Z20.822 Contact with and (suspected) exposure to COVID-19; R65.20 Severe sepsis without septic shock; E87.70 Fluid overload, unspecified; E11.22 Type 2 diabetes mellitus with diabetic chronic kidney disease; D50.9 Iron deficiency anemia, unspecified; I34.0 Nonrheumatic mitral (valve) insufficiency; E78.5 Hyperlipidemia, unspecified; N18.32 Chronic kidney disease, stage 3b; R07.9 Chest pain, unspecified; I95.9 Hypotension, unspecified; R74.01 Elevation of levels of liver transaminase levels; E11.65 Type 2 diabetes mellitus with hyperglycemia; Z91.030 Bee allergy status; Z95.0 Presence of cardiac pacemaker; Z95.5 Presence of coronary angioplasty implant and graft; Z79.01 Long term (current) use of anticoagulants; Z79.899 Other long term (current) drug therapy
CPT/HCPCS: 0241U; 32555; 36415; 71045; 74176; 78580; 80053; 80069; 81001; 82042; 82550; 82947; 83605; 83615; 83880; 84145; 84157; 84484; 85025; 85610; 87040; 87070; 87205; 88108; 88305; 89051; 93005; 93010; 93306; 94640; 94664; 94760; 96365; 96366; 96375; 99285-25; A9270; A9540; J0456; J0696; J1815; J2405; J3370; J7040; J7050; J7060; J7120

== ENCOUNTER 2022-07-22 20:11 | Inpatient (IN) | payer OTHER ==
[~2022-07-22] VITALS: Ht 180.3 cm; Wt 108.5 kg
[~2022-07-22 20:11] MED LIST changes: +ELIQUIS5 M2 PO; +GLIP5 PO; +LANS30EC PO; +METO25ER PO
[2022-07-22 20:35] LABS: BASOPHILS ABSOLUTE AUTO 0.03 K/mm3 (0.00-0.23); BASOPHILS PERCENT AUTO 0 % (0-2); EOSINOPHILS ABSOLUTE AUTO 0.19 K/mm3 (0.00-0.68); EOSINOPHILS PERCENT AUTO 2 % (0-6); Hematocrit 38.3 % (37.0-53.0); Hemoglobin 11.4 g/dL (13.5-17.5); IMMATURE GRAN ABSOLUTE AUTO 0.02 K/mm3 (0.00-0.10); IMMATURE GRAN PERCENT AUTO 0 % (0-1); LYMPHOCYTES ABSOLUTE AUTO 0.68 K/mm3 (0.84-5.20); LYMPHOCYTES PERCENT AUTO 8 % (21-46); MONOCYTES ABSOLUTE AUTO 0.74 K/mm3 (0.16-1.47); MONOCYTES PERCENT AUTO 9 % (4-13); Mean Corpuscular HGB 21.7 pg (26.0-34.0); Mean Corpuscular HGB Conc 29.8 g/dL (31.5-36.5); Mean Corpuscular Volume 73 fL (80-100); Mean Platelet Volume 9.1 fL (9.1-12.4); NEUTROPHILS PERCENT AUTO 80 % (41-73); Platelet Count 251 K/mm3 (150-400); RDW Coefficient Variation 19.6 % (11.7-14.2); RDW Standard Deviation 49.1 fL (35.1-46.3); Red Blood Cell Count 5.25 M/mm3 (4.30-5.90); White Blood Cell Count 8.26 K/mm3 (4.00-11.30)
[2022-07-22 20:49] LABS: Base Excess Venous -3.4 mmol/L; Bicarbonate Venous 21.5 mmol/L (24.0-30.0); PCO2 Venous 40.1 mmHg (38-42); pH Blood Venous 7.35 (7.34-7.37)
[2022-07-22 20:56] LABS: Magnesium, Blood 2.7 mg/dL (1.6-2.4)
[2022-07-22 20:59] LABS: Albumin, Blood 2.9 g/dL (3.4-5.0); Albumin/Globulin Ratio 0.7 (0.8-1.8); Bilirubin, Total 3.1 mg/dL (0.1-1.0); Bun/Creatinine Ratio 23.6 (12.0-20.0); Calcium, Blood 8.8 mg/dL (8.5-10.1); Creatinine, Blood 1.78 mg/dL (0.60-1.20); Globulin, Blood 4.2 g/dL (2.2-4.0); Potassium, Blood 4.5 mmol/L (3.5-5.5); Thyroid Stimulating Hormone 1.95 uIU/mL (0.360-4.800); Total Protein, Blood 7.1 g/dL (6.4-8.2)
[2022-07-22 23:46] LABS: Influenza A, PCR NEGATIVE (NEGATIVE); Influenza B, PCR NEGATIVE (NEGATIVE); Resp Syncytial Virus, PCR NEGATIVE (NEGATIVE); SARS-Cov-2 (COVID-19) PCR, MMC NEGATIVE (NEGATIVE)
[2022-07-23 05:03] LABS: BASOPHILS ABSOLUTE AUTO 0.03 K/mm3 (0.00-0.23); BASOPHILS PERCENT AUTO 0 % (0-2); EOSINOPHILS ABSOLUTE AUTO 0.09 K/mm3 (0.00-0.68); EOSINOPHILS PERCENT AUTO 1 % (0-6); Hematocrit 36.2 % (37.0-53.0); Hemoglobin 10.8 g/dL (13.5-17.5); IMMATURE GRAN ABSOLUTE AUTO 0.03 K/mm3 (0.00-0.10); IMMATURE GRAN PERCENT AUTO 0 % (0-1); LYMPHOCYTES ABSOLUTE AUTO 0.59 K/mm3 (0.84-5.20); LYMPHOCYTES PERCENT AUTO 7 % (21-46); MONOCYTES ABSOLUTE AUTO 0.67 K/mm3 (0.16-1.47); MONOCYTES PERCENT AUTO 8 % (4-13); Mean Corpuscular HGB 21.6 pg (26.0-34.0); Mean Corpuscular HGB Conc 29.8 g/dL (31.5-36.5); Mean Corpuscular Volume 72 fL (80-100); Mean Platelet Volume 9.3 fL (9.1-12.4); NEUTROPHILS PERCENT AUTO 83 % (41-73); Platelet Count 232 K/mm3 (150-400); RDW Coefficient Variation 19.6 % (11.7-14.2); RDW Standard Deviation 48.4 fL (35.1-46.3); White Blood Cell Count 8.21 K/mm3 (4.00-11.30)
[2022-07-23 05:30] LABS: Albumin, Blood 2.7 g/dL (3.4-5.0); Anion Gap 6 mmol/L (6-16); Blood Urea Nitrogen 45 mg/dL (8-24); Bun/Creatinine Ratio 27.3 (12.0-20.0); CO2, Blood 22 mmol/L (21-32); Calcium, Blood 8.7 mg/dL (8.5-10.1); Chloride, Blood 108 mmol/L (98-108); Creatinine, Blood 1.65 mg/dL (0.60-1.20); Glomerular Filtration Rate 49 (60-); Glucose, Blood 119 mg/dL (70-99); Phosphorus, Blood 3.6 mg/dL (2.5-4.9); Potassium, Blood 4.2 mmol/L (3.5-5.5); Sodium, Blood 136 mmol/L (136-145)
--- NOTE | 2022-07-23 06:00 | NUR ---
END OF SHIFT NURSING REPORT - PM Patient is a 52y/o male with history of HFrEF 15-20%, coronary artery disease status post LAD PCI in 2018, pacemaker implantation on 2019 status post upgrade to ICD, CKD stage III, type 2 diabetes mellitus, hypertension, and hyperlipidemia who presents to the ED with worsening shortness of breath at 1400 today. AOX4, spo2 98% on room air. Placed on Bipap for bedtime. Respiratory Panel (-). AM Labs collected. Plan for repeat ECHO in today.
--- NOTE | 2022-07-23 08:36 | NUR ---
ASSUMPTION OF CARE: PATIENT IS ALERT AND ORIENTED X 4 OBVIOUS DYPSNEA. SATURATING WELL. SPO2 99% ON RA PATIENT HAS BEEN ON BIPAP WHILE SLEEPING CONT PULSE OX IN PLACE. PATIENT RECIEVING DIURETICS. DENIES CHEST PAIN. DID ENDORSE CHEST PAIN PREVIOUSLY TO ADMISSION AND OCCASSIONALLY THAT IS SHARP STABBING NEVER SUSTAINING. ECHO TO BE PREFORMED AND WILL CONTINUE TO MONITOR AND INFORM PROVIDERS. NO CONCERNS FROM THIS RN THAT HAVE NOT BEEN ADRESSED. PATIENT MAINLY IND USES URINAL AT THE BEDSIDE COOPERATIVE WITH CARE. NO CONCERNS FROM PATIENT AT THIS TIME. WILL CONTIUE TO MONITOR.
[2022-07-23] MEDS ORDERED: FARXIGA5 MG PO (17:53)
[2022-07-23] MEDS ORDERED: GLIP5 PO (17:53)
[2022-07-23] MEDS ORDERED: POTCHL20ER PO (17:54)
[2022-07-23] MEDS ORDERED: SOAANZ20 M3 PO (17:55)
[2022-07-23] MEDS ORDERED: METO50ER PO (18:16)
[2022-07-23] MEDS ORDERED: CLOP75 PO (18:16)
--- NOTE | 2022-07-23 18:35 | NUR ---
END OF SHIFT: CHANGES FROM ASSUMPTION OF CARE ARE PATIENT HAS GREAT URINE OUTPUT. APPROX 2L FOR THE DAY WITH ROUGHLY 1200 DURING DAY SHIFT AND STILL DIURESING WELL. IMPROVED COLOR FROM AM. PATIENT BEEN ABLE TO TOLERATE LONGER BREAKS OFF BIPAP. PATIENT SELF REPOSITIONED Q2 AND REMINDED FROM THIS RN MULTIPLE TIMES ADDITIONALLY WELL. STILL NO CHEST PAIN VSS STABLE FOR PATIENT AT THIS TIME. WILL CONTINUE TO MONITOR UNTIL SHIFT CHANGE.
[2022-07-24 03:34] LABS: BASOPHILS ABSOLUTE AUTO 0.04 K/mm3 (0.00-0.23); BASOPHILS PERCENT AUTO 0 % (0-2); EOSINOPHILS ABSOLUTE AUTO 0.37 K/mm3 (0.00-0.68); EOSINOPHILS PERCENT AUTO 4 % (0-6); Hematocrit 35.1 % (37.0-53.0); Hemoglobin 10.6 g/dL (13.5-17.5); IMMATURE GRAN ABSOLUTE AUTO 0.03 K/mm3 (0.00-0.10); IMMATURE GRAN PERCENT AUTO 0 % (0-1); LYMPHOCYTES ABSOLUTE AUTO 0.78 K/mm3 (0.84-5.20); LYMPHOCYTES PERCENT AUTO 9 % (21-46); MONOCYTES ABSOLUTE AUTO 0.75 K/mm3 (0.16-1.47); MONOCYTES PERCENT AUTO 8 % (4-13); Mean Corpuscular HGB 21.7 pg (26.0-34.0); Mean Corpuscular HGB Conc 30.2 g/dL (31.5-36.5); Mean Corpuscular Volume 72 fL (80-100); Mean Platelet Volume 9.3 fL (9.1-12.4); NEUTROPHILS PERCENT AUTO 78 % (41-73); Platelet Count 242 K/mm3 (150-400); RDW Coefficient Variation 19.6 % (11.7-14.2); RDW Standard Deviation 48.2 fL (35.1-46.3); Red Blood Cell Count 4.88 M/mm3 (4.30-5.90); White Blood Cell Count 9.07 K/mm3 (4.00-11.30)
[2022-07-24 03:58] LABS: Calcium, Blood 8.5 mg/dL (8.5-10.1); Creatinine, Blood 1.8 mg/dL (0.60-1.20); Potassium, Blood 4.4 mmol/L (3.5-5.5)
--- NOTE | 2022-07-24 17:13 | NUR ---
SHIFT SUMMARY PT A/O X4, PLEASANT AND COOPERATIVE WITH CARE. PT ON RA, SPO2 >92%. HE DID EXPERIENCE EPISODES OF SOB AND TACHYPNEA BUT SPO2 REMAINED ABOVE 92% PT HAS USED BIPAP HE FELT HE NEEDED IT FOR SOB, BUT HAS BEEN ON RA MAJORITY OF SHIFT. PT HAS A FREQUENT DRY NON PRODUCTIVE COUGH. TESSALON PEARLS WERE ORDERED PRN FOR PT AND HE SEEMS TO BE COUGHING LESS FREQUENTLY. PT HR WAS ALSO IN THE 100'S THIS AM AND DROPPED TO THE 60'S AROUND 1100. PT COUGHING ALSO DECREASED AROUND THIS TIME. HE IS VPACED AND RATE REMAINS 55-60'S. PT HAS HAD MINIMAL URINE OUTPUT TODAY. DR MORALES CHANGED PT LASIX ORDERS TO BUMEX THIS EVENING. HE PLANS TO ASSESS PT IN MORNING AND ADJUST DIURETICS NEEDED. PT WAS ABLE TO SHOWER TODAY WITH JUST SBA. PT TOLERATED WELL. PT ALSO HAS BEEN STANDING AT BEDSIDE INDEPENDENTLY TO USE URINAL AND IS TOLERATING WELL. WILL CONTINUE TO CARE FOR PT AND REPORT TO ONCOMING RN.
[2022-07-25 03:37] LABS: Hematocrit 35.7 % (37.0-53.0); Hemoglobin 10.8 g/dL (13.5-17.5)
[2022-07-25 03:56] LABS: Bun/Creatinine Ratio 28.4 (12.0-20.0); Calcium, Blood 8.6 mg/dL (8.5-10.1); Creatinine, Blood 1.97 mg/dL (0.60-1.20); Potassium, Blood 4.2 mmol/L (3.5-5.5)
--- NOTE | 2022-07-25 04:37 | NUR ---
SHIFT SUMMARY PT A&Ox4, CALLS AND COMMUNICATES NEEDS APPROPRIATELY. BP STABLE, V-PACED 80-100's, DENIES CP/PRESSURE. SpO2> 92% RA, DENIES SOB. PT USES BIPAP 10/6 25% FiO2 PRN, PT PUTS BIPAP ON&OFF IND. PT DESATURATES BRIEFLY WHEN SLEEPING IF NOT WEARING BIPAP. PT CONTINENT OF URINE, USES URINAL APPROPRIATELY AND IND AT BEDSIDE. PT IND IN ROOM. NO BM THIS SHIFT. MANAGED PT'S PAIN PER EMAR. PT STATED THAT HE WAS TIRED OF HAVING TO WEAR BIPAP AND TIRED OF BEING IN HOSPITAL. NO OTHER EVENTS, WILL REPORT TO ONCOMING RN.
--- NOTE | 2022-07-25 13:08 | NUR ---
Upon receiving a referral for spiritual care, I visited the patient. He is sitting up in bed and alert. We talk at length about his medical issues and the limitations they cause in terms of mobility and activity. We discuss how this is affecting him emotionally. We also talk about his Spiritism figueroa and how he draws strength in it. I provide therapeutic listening and prayer. Patient responed well and showed signs of increased peace. I will continue to remain available to patient and family.
--- NOTE | 2022-07-25 15:07 | NUR ---
Brief supportive visit this afternoon. Pt A&OX4 and denies pain at this time. Pt reports still having dyspnea. Pt reports never and no children. He reports having a brother who "[place]". He reports his father and grandfather in their 50's related to cardiac issues. Brief discussion regarding advanced directives. Pt reports never completing one and is agreeable for this RN to return at a later time to discuss. Ended visit to alllow Pt to rest. Palliative Care will remain available.
--- NOTE | 2022-07-25 18:17 | NUR ---
SHIFT SUMMARY ASSUMED CARE OF PT AT 0700 TODAY. NO ACUTE EVENTS T/O THE SHIFT. PT MEDICATED FOR HEADACHE AND COUGH WITH PRN MEDICATIONS PER MAR WITH GOOD EFFECT. 2049 ML OF URINE T/O THE SHIFT. PT CONTINUES TO USE BIPAP WHILE SLEEPING. TELEPHONE ORDERS RECEIVED FROM DR MORALES THIS EVENING TO INCREASE BUMEX AND METOLAZONE DOSAGES FROM ONCE DAILY TO TWICE DAILY. CLEAN DRESSING APPLIED TO QUARTER SIZED WOUND ON R GREAT TOE, APPEARS TO BE AN OPEN BLISTER, NO REDNESS OR DRAINAGE NOTED. PT IS ABLE TO USE CALL LIGHT FOR MEALS, CALL LIGHT IN REACH, WILL CONTINUE TO MONITOR AND GIVE REPORT TO NOC SHIFT RN.
--- NOTE | 2022-07-26 04:33 | NUR ---
SHIFT SUMMARY PT A&Ox4, CALLS AND COMMUNICATES NEEDS APPROPRIATELY. BP STABLE, V-PACED 80-100's, DENIES CP/PRESSURE. SpO2> 92% RA, DENIES SOB. PT USES BIPAP PRN, PT PUTS BIPAP ON&OFF IND. PT DESATURATES BRIEFLY WHEN SLEEPING IF NOT WEARING BIPAP. PT CONTINENT OF URINE, USES URINAL APPROPRIATELY AND IND AT BEDSIDE. PT IND IN ROOM. NO BM THIS SHIFT. MANAGED PT'S PAIN PER EMAR. STANDING WEIGHT DONE. NO OTHER EVENTS, WILL REPORT TO ONCOMING RN.
[2022-07-26 06:44] LABS: Albumin, Blood 2.4 g/dL (3.4-5.0); Albumin/Globulin Ratio 0.6 (0.8-1.8); Bilirubin, Total 2.6 mg/dL (0.1-1.0); Bun/Creatinine Ratio 32.4 (12.0-20.0); Calcium, Blood 8.6 mg/dL (8.5-10.1); Creatinine, Blood 1.85 mg/dL (0.60-1.20); Globulin, Blood 4.2 g/dL (2.2-4.0); Potassium, Blood 3.9 mmol/L (3.5-5.5); Total Protein, Blood 6.6 g/dL (6.4-8.2)
--- NOTE | 2022-07-26 12:13 | NUR ---
TRANSFER SUMMARY: PATIENT ARRIVED TO UNIT VIA BED. PATIENT ABLE TO TRANSFER TO NEW BED, BUT WAS SHORT OF BREATH AFTER THIS ACTIVITY. PATIENT SPO2 WAS 92-93% POST TRANSFER. PATIENT HAS AN ELEVATED HEART RATE WITH SHORTNESS OF BREATH, ACTIVITY, AND COUGHING. PATIENT REPORTS PAIN IN BROKEN TOOTH. MEDICATED FOR PAIN AND COUGH. PATIENT IS KNOWLEDGEABLE OF FLUID RESTRICTION AND IS MANAGING WELL. EDEMA STILL PRESENT IN BLE'S. PATIENT REPORTS IMPROVEMENT. URINAL AT BEDSIDE. PATIENT'S LUNG SOUNDS ARE DIMINISHED WITH FINE CRACKLES IN THE BASES. CLEAR IN THE UPPER LOBES. TELEMETRY IN PLACE AND VERIFIED WITH [employer] (V-PACED AT 111). PATIENT RESTING COMFORTABLY IN BED EATING LUNCH.
[2022-07-26 17:30] LABS: Bun/Creatinine Ratio 29.9 (12.0-20.0); Calcium, Blood 8.9 mg/dL (8.5-10.1); Creatinine, Blood 1.97 mg/dL (0.60-1.20); Potassium, Blood 3.5 mmol/L (3.5-5.5)
--- NOTE | 2022-07-26 19:42 | NUR ---
END OF SHIFT SUMMARY: PATIENT REPORTED PAIN IN HIS BROKEN TOOTH TODAY. MEDICATED PER PRNS AND SET UP VISIT FROM DENTAL HYGIENIST. PATIENT DENIED CHEST PAIN. PATIENT EXPERIENCES SHORTNESS OF BREATH AT REST AND WITH ACTIVITY. PATIENT REPORTS THAT IT IS IMPROVED FROM WHEN HE WAS ADMITTED. PATIENT SPO2 RANGED FROM 91-95% ON ROOM AIR. PATIENT ALSO REPORTS THAT THE EDEMA IN HIS BLE IS IMPROVED. PATIENT FOLLOWS HIS FLUID RESTRICTION. HE VOIDED OVER 4000 ML OF URINE THROUGHOUT THE SHIFT. PATIENT TOLERATES THE CPAP WELL AND REPORTS THAT HE IS INTENDING TO FOLLOW UP WITH HIS PCP RE: SLEEP STUDY AND CPAP PRESCRIPTION.
--- NOTE | 2022-07-27 03:31 | NUR ---
SHIFT SUMMARY NOC PT A/O X 4. PT HERE FOR DIURETIC CONTROL. PT HAS FOUND THAT COMBINATION OF ZAROXOLYN GIVEN 30 MINUTES PRIOR TO IV BUMEX HAS WORKED WELL WITH FLUID RETENTION DIURESIS. PT GETS SOB UPON EXERTION AND REST WITH SPO2 RANGING FROM 91-95% ON RA. PT HAS HAD ALMOST 1500ML OF URINE OUTPUT SO FAR DURING SHIFT. PT IS ON FLUID RESTRICTION OF 1200ML AND FOLLOWS ORDER STRICTLY. PT HAS PM IN PLACE VENTRICULAR PACED AND ON TELE RUNNING BRAZING FURNACE FEEDER IN 90'S.PT HAS REDNESS IN GROIN FOLDS AND DESENEX WAS APPLIED. PT ALSO HAS OPEN SORE ON R BIG TOE THAT HAS BANDAGE ON IT. PT HAS BROKEN TOOTH AND HAD NO C/O OF PAIN. PT WEARS CPAP FOR SLEEP AND WILL FOLLOW UP AFTER DISCHARGE TO PARTICIPATE IN A SLEEP STUDY FOR HOME CPAP. PT IS CURRENTLY RESTING WITH BED IN LOWEST POSITION, AND CALL LIGHT WITHIN REACH.
[2022-07-27 05:29] LABS: Hematocrit 36.1 % (37.0-53.0); Hemoglobin 11.1 g/dL (13.5-17.5)
[2022-07-27 05:54] LABS: Albumin, Blood 2.5 g/dL (3.4-5.0); Albumin/Globulin Ratio 0.6 (0.8-1.8); Bilirubin, Total 2.7 mg/dL (0.1-1.0); Bun/Creatinine Ratio 32.3 (12.0-20.0); Calcium, Blood 8.8 mg/dL (8.5-10.1); Creatinine, Blood 1.89 mg/dL (0.60-1.20); Globulin, Blood 4.1 g/dL (2.2-4.0); Potassium, Blood 3.1 mmol/L (3.5-5.5); Total Protein, Blood 6.6 g/dL (6.4-8.2)
[2022-07-27 07:11] LABS: HCV AB Non Reactive (Non Reactive)
[2022-07-27 15:26] LABS: Bun/Creatinine Ratio 33.3 (12.0-20.0); Calcium, Blood 8.7 mg/dL (8.5-10.1); Creatinine, Blood 1.77 mg/dL (0.60-1.20); Potassium, Blood 3.2 mmol/L (3.5-5.5)
--- NOTE | 2022-07-27 16:27 | NUR ---
SPN SHIFT SUMMARY PATIENT WAS PLESANT AND COOPERATIVE WITH CARE TODAY. PATIENT GROIN RASH LOOKS TO BE CLEARED DESENEX POWDER WAS APPLIED TWICE THIS SHIFT PER ORDER. PATIENT IS ON R/A, BUT DID USE CPAP AND SLEPT FOR SOME TIME THIS MORNING AFTER BREAKFAST. PATIENT WAS UP TO BEDSIDE TO USE URNINAL 425 OUT. PATIENT IS RESITNG IN BED, CALL LIGHT IS WITHIN REACH. WILL CONTINUE TO MONITOR AND PROVIDE CARE.
--- NOTE | 2022-07-27 18:56 | NUR ---
CALLED DR MARIANO- PT EVENING VITALS WERE 91/67. RECHECK FOOR MED ADMINISTRATION WAS 101/75. CONCERN FOR CAUSING HYPOTENSION WITH MEDICATION. CALLED DR MARIANO FOR PARAMETERS, LEFT TWO MESSAGES REQUESTING A CALL BACK. CALLED AGAIN, AWAITING A CALL BACK.
--- NOTE | 2022-07-27 19:32 | NUR ---
SHIFT SUMMARY- BEDSIDE REPORT COMPLETED WITH NIGHT RN MARILYN. PT WAS PLEASENT T/O THE DAY BUT BECAME IRRITATED WITH STAFF WHEN THEY EXPLAINED THAT FLUID RECIEVED ON HIS MEAL TRAY DO INDEED COUNT TOWARDS HIS FLUID INTAKE. THE PT HAS ONLY 70ML ALLOWED ON HIS FLUID RESTRICTION FOR THE NIGHT, HOWEVER HE DISAGREES. NIGHT RN IS AWARE. PT BP WAS SOFT ON EVENING VITALS HE HAS NOT RECIEVED ANY DIURETICS TODAY HE HAS A PO DOSE OF DEMADEX DUE AT 1800, ATTEMPTED TO CALL THE HOSPITALIST AND DID NOT RECIEVE A CALL BACK. THIS MED NEEDS ADMINISTRATION PARAMETERS, NIGHT RN AWARE AND IS CALLING THE NIGHT HOSPITALIST. NIGHT TIIME VITALS ARE LOWER THAN PREVIOUS. NIGHT RN IS AWARE. PT IN BED, CALL LIGHT IN REACH, PT CALLS APPROPRIATELY. NO S&S OF DISTRESS NOTED.
--- NOTE | 2022-07-27 19:41 | NUR ---
SHIFT ASSESSMENT SHOULD INCLUDE PT IS ON TELE VENTRICULAR PACED AT AN AVERAGE RATE OF 112 T/O THE SHIFT TODAY. PITTING EDEMA IS IMPROVED ON PT BLE T/O THE DAY TODAY. ALSO OF NOTE THE PT HAS AN EF OF 10-15% ON LAST ECHO.
[2022-07-28 06:27] LABS: Calcium, Blood 8.6 mg/dL (8.5-10.1); Creatinine, Blood 1.64 mg/dL (0.60-1.20); Potassium, Blood 3.1 mmol/L (3.5-5.5)
--- NOTE | 2022-07-28 08:30 | NUR ---
DR MARIANO IN TO SEE PT. OKAYED TO GIVE METOPROLOL AND DEMEDEX WITH BP 109/86,
[2022-07-28 15:28] LABS: Bun/Creatinine Ratio 37.6 (12.0-20.0); Calcium, Blood 8.4 mg/dL (8.5-10.1); Creatinine, Blood 1.65 mg/dL (0.60-1.20); Potassium, Blood 3.7 mmol/L (3.5-5.5)
--- NOTE | 2022-07-28 16:26 | NUR ---
PT PLEASANT TODAY. NO C/O PAIN. COUGHING CONTINUES. PT STATES THIS HAS BEEN A PROBLEM FOR ABOUT 2 [address] AND HAS SEEN DR FOR THIS IN PAST. APPEARS MOSTLY DRY COUGH. PT STATES MIGHT BE OKAY TO GO HOME. NO NEW CONCERNS NOTED TODAY. BED IN LOW POSITION, CALL LITE IN REACH, CALLS APPROP
--- NOTE | 2022-07-28 17:07 | NUR ---
BP 920/68 MAP 76, PT ASYMPTOMATIC. CALLED DR MORALES ABOUT THIS AND DIURETIC. OKAY TO GIVE IV +>90 AND ASYMPTOMATIC
--- NOTE | 2022-07-29 06:00 | NUR ---
EPIC APPLICATION COORDINATOR SUMMARY PT A/OX4. COOPERATIVE WITH CARE. PT CONT TO HAVE DRY BARKING COUGH; TESSLAN PERKAMINI WITH 2100 MEDS. RT AT BEDSIDE F/BIPAP AND TO ADD/ADJUST O2 BLEED IN. PT ON CONT PULSE OX; SOME DESATS W/ACTIVTY AND SOB NOTED. MORNING BLOOD PRESSURE 89/76; PT ASYMPTOMATIC. PT REMAINS ON TELE WITH RATE FROM 70'S TO 110'S. PT ABLE TO MAKE NEEDS KNOWN. USING URINAL AT BEDSIDE; ENCOURAGED PT TO CALL OF NEEDS TO BE UP OOB. CALL LIGHT ACCESSIBLE.
[2022-07-29 06:44] LABS: Bun/Creatinine Ratio 37.7 (12.0-20.0); Calcium, Blood 8.7 mg/dL (8.5-10.1); Creatinine, Blood 1.67 mg/dL (0.60-1.20); Potassium, Blood 2.9 mmol/L (3.5-5.5)
[2022-07-29 14:11] LABS: Bun/Creatinine Ratio 37.1 (12.0-20.0); Calcium, Blood 8.7 mg/dL (8.5-10.1); Creatinine, Blood 1.75 mg/dL (0.60-1.20)
[2022-07-29] MEDS ORDERED: POTA10T PO (15:52)
== END 2022-07-29 16:40 | disposition home or self-care (01) | DRG 291 ==
LOC: ER 20:11 → PCU 22:53 → MEDS 07-26 11:34
PROVIDERS: Emergency Medicine; Family Medicine; Student in an Organized Health Care Education/Training Program; ADMIT Hospitalist
PROC: 5A09457 Assistance with Respiratory Ventilation, 24-96 Consecutive Hours, Continuous Positive Airway Pressure (ICD-10-PCS; principal; 2022-07-22)
DX: I13.0 Hypertensive heart and chronic kidney disease with heart failure and stage 1 through stage 4 chronic kidney disease, or unspecified chronic kidney disease (principal); I50.43 Acute on chronic combined systolic (congestive) and diastolic (congestive) heart failure; J96.01 Acute respiratory failure with hypoxia; N17.9 Acute kidney failure, unspecified; I42.8 Other cardiomyopathies; I25.10 Atherosclerotic heart disease of native coronary artery without angina pectoris; R05.3 Chronic cough; E78.5 Hyperlipidemia, unspecified; N18.30 Chronic kidney disease, stage 3 unspecified; Z20.822 Contact with and (suspected) exposure to COVID-19; E87.6 Hypokalemia; E11.22 Type 2 diabetes mellitus with diabetic chronic kidney disease; I27.20 Pulmonary hypertension, unspecified; Z95.5 Presence of coronary angioplasty implant and graft; Z95.0 Presence of cardiac pacemaker; Z91.038 Other insect allergy status; Z79.899 Other long term (current) drug therapy; Z79.01 Long term (current) use of anticoagulants; Z79.02 Long term (current) use of antithrombotics/antiplatelets; Z86.718 Personal history of other venous thrombosis and embolism
CPT/HCPCS: 0241U; 36415; 71045; 80048; 80053; 80069; 82803; 82947; 83735; 83880; 84443; 84484; 85014; 85018; 85025; 86803; 93005; 93010; 93306; 94644; 94660; 94664; 94762; 96374; 96375; 96376; 99285-25; A9270; J1940; J2405; J3480

== ENCOUNTER → 2022-10-30 | Outpatient (CLI) | payer OTHER ==
[~2022-10-30] MED LIST changes: +FARXIGA5 MG PO; +METO50ER PO; +POTA10T PO; +SOAANZ20 M3 PO
== END | disposition home or self-care (01) ==
LOC: LAB SHORT 07:31 → PLD 07:31
DX: L98.9 Disorder of the skin and subcutaneous tissue, unspecified (principal)
CPT/HCPCS: 88305

== ENCOUNTER 2023-06-21 17:17 | Emergency (ER) | payer OTHER ==
[~2023-06-21] VITALS: Ht 180.3 cm; Wt 65.8 kg
[2023-06-21 17:25] VITALS: BP 113/84
[2023-06-21] MEDS ORDERED: GABA300 PO (20:10)
== END 2023-06-21 20:22 | disposition home or self-care (01) ==
LOC: ER 17:17
DX: E11.40 Type 2 diabetes mellitus with diabetic neuropathy, unspecified (principal); I50.9 Heart failure, unspecified; I42.9 Cardiomyopathy, unspecified; Z95.0 Presence of cardiac pacemaker; Z79.01 Long term (current) use of anticoagulants; Z79.02 Long term (current) use of antithrombotics/antiplatelets; Z79.84 Long term (current) use of oral hypoglycemic drugs; Z79.899 Other long term (current) drug therapy; Z91.030 Bee allergy status
CPT/HCPCS: 93922; 99284-25

== ENCOUNTER 2023-08-13 13:53 | Emergency (ER) | payer OTHER ==
[~2023-08-13] VITALS: Ht 172.7 cm; Wt 111.1 kg
[~2023-08-13 13:53] MED LIST changes: +GABA300 PO
[2023-08-13] MEDS ORDERED: CALCITRIOL0.25 MC4 PO (15:01)
[2023-08-13] MEDS ORDERED: Potassium Chlo20 ME1 PO (15:02)
[2023-08-13] MEDS ORDERED: LOSARTAN POTASS25 M2 PO (15:02)
[2023-08-13] MEDS ORDERED: LANSOPRAZOLE30 MG PO (15:02)
[2023-08-13 15:41] LABS: BASOPHILS ABSOLUTE AUTO 0.03 K/mm3 (0.00-0.23); BASOPHILS PERCENT AUTO 0 % (0-2); EOSINOPHILS ABSOLUTE AUTO 0.03 K/mm3 (0.00-0.68); EOSINOPHILS PERCENT AUTO 0 % (0-6); Hematocrit 39.8 % (37.0-53.0); Hemoglobin 11.6 g/dL (13.5-17.5); IMMATURE GRAN ABSOLUTE AUTO 0.02 K/mm3 (0.00-0.10); IMMATURE GRAN PERCENT AUTO 0 % (0-1); LYMPHOCYTES PERCENT AUTO 7 % (21-46); MONOCYTES ABSOLUTE AUTO 0.48 K/mm3 (0.16-1.47); MONOCYTES PERCENT AUTO 7 % (4-13); Mean Corpuscular HGB 21.1 pg (26.0-34.0); Mean Corpuscular HGB Conc 29.1 g/dL (31.5-36.5); Mean Corpuscular Volume 73 fL (80-100); Mean Platelet Volume 9.4 fL (9.1-12.4); NEUTROPHILS PERCENT AUTO 85 % (41-73); Platelet Count 207 K/mm3 (150-400); RDW Standard Deviation 52.5 fL (35.1-46.3); Red Blood Cell Count 5.49 M/mm3 (4.30-5.90); White Blood Cell Count 7.26 K/mm3 (4.00-11.30)
[2023-08-13] MEDS ORDERED: VIT D2-K1 20-1259 ML (16:03)
[2023-08-13 16:07] LABS: Albumin, Blood 3.3 g/dL (3.4-5.0); Albumin/Globulin Ratio 0.8 (0.8-1.8); Bilirubin, Total 1.4 mg/dL (0.1-1.0); Bun/Creatinine Ratio 13.7 (12.0-20.0); Calcium, Blood 9.4 mg/dL (8.5-10.1); Creatinine, Blood 2.34 mg/dL (0.60-1.20); Globulin, Blood 4.2 g/dL (2.2-4.0); Potassium, Blood 4.5 mmol/L (3.5-5.5); Total Protein, Blood 7.5 g/dL (6.4-8.2)
[2023-08-13 17:22] VITALS: BP 101/80
== END 2023-08-13 17:35 | disposition home or self-care (01) ==
LOC: ER 13:53
PROVIDERS: Emergency Medicine
DX: R05.9 Cough, unspecified (principal); I50.9 Heart failure, unspecified; N18.4 Chronic kidney disease, stage 4 (severe)
CPT/HCPCS: 71046; 76770; 80053; 83880; 85025; 99285-25

== ENCOUNTER 2023-08-27 14:47 | Emergency (ER) | payer OTHER ==
[~2023-08-27] VITALS: Ht 180.3 cm; Wt 124.3 kg
[~2023-08-27 14:47] MED LIST changes: +CALCITRIOL0.25 MC4 PO; +LANSOPRAZOLE30 MG PO; +LOSARTAN POTASS25 M2 PO; +Potassium Chlo20 ME1 PO; +VIT D2-K1 20-1259 ML
[2023-08-27 15:17] LABS: BASOPHILS ABSOLUTE AUTO 0.03 K/mm3 (0.00-0.23); BASOPHILS PERCENT AUTO 0 % (0-2); EOSINOPHILS ABSOLUTE AUTO 0.11 K/mm3 (0.00-0.68); EOSINOPHILS PERCENT AUTO 2 % (0-6); Hematocrit 37.3 % (37.0-53.0); Hemoglobin 10.7 g/dL (13.5-17.5); IMMATURE GRAN ABSOLUTE AUTO 0.02 K/mm3 (0.00-0.10); IMMATURE GRAN PERCENT AUTO 0 % (0-1); LYMPHOCYTES PERCENT AUTO 6 % (21-46); MONOCYTES ABSOLUTE AUTO 0.49 K/mm3 (0.16-1.47); MONOCYTES PERCENT AUTO 7 % (4-13); Mean Corpuscular HGB 20.9 pg (26.0-34.0); Mean Corpuscular HGB Conc 28.7 g/dL (31.5-36.5); Mean Corpuscular Volume 73 fL (80-100); Mean Platelet Volume 9.8 fL (9.1-12.4); NEUTROPHILS ABSOLUTE AUTO 6.12 K/mm3 (1.96-9.15); NEUTROPHILS PERCENT AUTO 85 % (41-73); Platelet Count 190 K/mm3 (150-400); RDW Coefficient Variation 21.2 % (11.7-14.2); Red Blood Cell Count 5.11 M/mm3 (4.30-5.90); White Blood Cell Count 7.17 K/mm3 (4.00-11.30)
[2023-08-27 15:37] LABS: Albumin, Blood 2.9 g/dL (3.4-5.0); Albumin/Globulin Ratio 0.8 (0.8-1.8); Bilirubin, Total 1.4 mg/dL (0.1-1.0); Bun/Creatinine Ratio 16.5 (12.0-20.0); Calcium, Blood 8.6 mg/dL (8.5-10.1); Creatinine, Blood 2.42 mg/dL (0.60-1.20); Globulin, Blood 3.8 g/dL (2.2-4.0); Potassium, Blood 4.3 mmol/L (3.5-5.5); Total Protein, Blood 6.7 g/dL (6.4-8.2)
[2023-08-27] MEDS ORDERED: Furosemide 10 MG/ML 4ML Vial IV ONE (16:20)
[2023-08-27 17:47] VITALS: BP 97/78
== END 2023-08-27 17:48 | disposition home or self-care (01) ==
LOC: ER 14:47
PROVIDERS: Student in an Organized Health Care Education/Training Program
DX: R60.0 Localized edema (principal); I50.9 Heart failure, unspecified; E11.9 Type 2 diabetes mellitus without complications; Z95.5 Presence of coronary angioplasty implant and graft; Z95.0 Presence of cardiac pacemaker; Z91.030 Bee allergy status; Z79.899 Other long term (current) drug therapy; Z79.01 Long term (current) use of anticoagulants
CPT/HCPCS: 71045; 80053; 83880; 84484; 85025; 93005; 93010; 96374; 99285-25; J1940

== ENCOUNTER 2023-09-06 14:31 | Inpatient (IN) | payer OTHER ==
[~2023-09-06] VITALS: Ht 180.3 cm; Wt 112.7 kg
[~2023-09-06 14:31] MED LIST changes: -VIT D2-K1 20-1259 ML; +VIT D2-K1 20-1259 ML PO
[2023-09-06 15:20] LABS: BASOPHILS ABSOLUTE AUTO 0.03 K/mm3 (0.00-0.23); BASOPHILS PERCENT AUTO 1 % (0-2); EOSINOPHILS ABSOLUTE AUTO 0.07 K/mm3 (0.00-0.68); EOSINOPHILS PERCENT AUTO 1 % (0-6); Hematocrit 37.2 % (37.0-53.0); Hemoglobin 10.8 g/dL (13.5-17.5); IMMATURE GRAN ABSOLUTE AUTO 0.02 K/mm3 (0.00-0.10); IMMATURE GRAN PERCENT AUTO 0 % (0-1); LYMPHOCYTES ABSOLUTE AUTO 0.45 K/mm3 (0.84-5.20); LYMPHOCYTES PERCENT AUTO 7 % (21-46); MONOCYTES ABSOLUTE AUTO 0.44 K/mm3 (0.16-1.47); MONOCYTES PERCENT AUTO 7 % (4-13); Mean Corpuscular HGB 21.3 pg (26.0-34.0); Mean Corpuscular Volume 74 fL (80-100); Mean Platelet Volume 9.6 fL (9.1-12.4); NEUTROPHILS ABSOLUTE AUTO 5.59 K/mm3 (1.96-9.15); NEUTROPHILS PERCENT AUTO 85 % (41-73); Platelet Count 188 K/mm3 (150-400); RDW Coefficient Variation 21.7 % (11.7-14.2); RDW Standard Deviation 55.5 fL (35.1-46.3); Red Blood Cell Count 5.06 M/mm3 (4.30-5.90)
[2023-09-06 15:39] LABS: Albumin/Globulin Ratio 0.8 (0.8-1.8); Bilirubin, Total 1.7 mg/dL (0.1-1.0); Bun/Creatinine Ratio 18.9 (12.0-20.0); Calcium, Blood 8.9 mg/dL (8.5-10.1); Creatinine, Blood 2.43 mg/dL (0.60-1.20); Globulin, Blood 3.8 g/dL (2.2-4.0); Potassium, Blood 5.2 mmol/L (3.5-5.5); Total Protein, Blood 6.8 g/dL (6.4-8.2)
[2023-09-06] MEDS ORDERED: Furosemide 10 MG/ML 10ML Vial IV ONE (15:45)
[2023-09-06] MEDS ORDERED: TORSE20 PO (19:16)
[2023-09-06 20:12] VITALS: BP 97/77
[2023-09-06] MEDS ORDERED: Apixaban 5 MG Tab PO SCH (21:00)
[2023-09-07] MEDS ORDERED: Furosemide 10 MG/ML 4ML Vial IV SCH
[2023-09-07] MEDS ORDERED: Acetaminophen 325 MG TABLET PO PRN (00:50)
[2023-09-07 03:08] VITALS: BP 104/76
[2023-09-07] MEDS ORDERED: Lansoprazole 15 MG TAB.RAP.DR PO SCH (06:00)
[2023-09-07 06:39] LABS: Bun/Creatinine Ratio 19.2 (12.0-20.0); Calcium, Blood 8.8 mg/dL (8.5-10.1); Creatinine, Blood 2.55 mg/dL (0.60-1.20); Magnesium, Blood 2.6 mg/dL (1.6-2.4); Potassium, Blood 4.4 mmol/L (3.5-5.5)
--- NOTE | 2023-09-07 06:39 | NUR ---
shift summary recieved pt from ed, admittd chf exacerbation a/o 4 min assist with weakness and sob on transfer. c/o of headache 3-6/10 v/s wnl, tc to hospital speciaist recieved orders for acetaminophen prn. Pt on tele, fall precautions in place, call light wnl reach
[2023-09-07 07:24] VITALS: BP 105/83
[2023-09-07] MEDS ORDERED: Insulin Human Lispro 100 Units/ML 3ML Syringe SC SCH (07:30)
[2023-09-07] MEDS ORDERED: Metoprolol Succinate 25 MG TABCR PO SCH ×2 (09:00→11:00)
[2023-09-07] MEDS ORDERED: Losartan Potassium 25 MG Tab PO SCH (09:00)
[2023-09-07] MEDS ORDERED: Atorvastatin 40 MG Tab PO SCH (09:00)
[2023-09-07] MEDS ORDERED: DAPAGLIFLOZIN 10 MG PO SCH (09:00)
[2023-09-07] MEDS ORDERED: Clopidogrel Bisulfate 75 MG Tab PO SCH (09:00)
[2023-09-07] MEDS ORDERED: Potassium Chloride 20 MEQ TabCR PO SCH (09:00)
[2023-09-07 15:30] VITALS: BP 100/78
--- NOTE | 2023-09-07 18:21 | NUR ---
SHIFT SUMMARY: PT A&O X4. PLEASANT AND COOPERATIVE WITH CARE. NO ACUTE CHANGES THIS SHIFT. CONTINUING TO DIURESE VIA IV LASIX. SLIGHTLY HYPOTENSIVE THIS SHIFT. PT USING URINAL AND RESTROOM INDEPENDENTLY. CALL LIGHT IN REACH. BED IN LOWEST POSITION.
[2023-09-07 20:11] VITALS: BP 99/74
[2023-09-07 23:28] VITALS: BP 104/88
[2023-09-08 05:18] VITALS: BP 107/81
--- NOTE | 2023-09-08 05:19 | NUR ---
SHIFT SUMMARY NOC PT A/O X 4. PLEASANT AND COOPERATIVE WITH CARE. VSS. PT HAS EDEMA IN BLE FROM FLUID OVERLOAD FROM ACUTE ON CHRONIC HF. RECEIVING IV LASIX Q8H. BP HAS BEEN SOFT. ON TELE RUNNING V-PACED @ 97 BPM. IS A DAILY WEIGHT TO MONITOR DIURETIC THERAPY. USING BEDSIDE URINALS DUE TO FREQUENCY FROM DIURETIC THERAPY. PT CURRENTLY RESTING WITH BED IN LOWEST POSITION, AND CALL LIGHT WITHIN REACH.
[2023-09-08 05:45] LABS: BASOPHILS ABSOLUTE AUTO 0.04 K/mm3 (0.00-0.23); BASOPHILS PERCENT AUTO 1 % (0-2); EOSINOPHILS ABSOLUTE AUTO 0.19 K/mm3 (0.00-0.68); EOSINOPHILS PERCENT AUTO 3 % (0-6); Hematocrit 36.4 % (37.0-53.0); Hemoglobin 10.7 g/dL (13.5-17.5); IMMATURE GRAN ABSOLUTE AUTO 0.01 K/mm3 (0.00-0.10); IMMATURE GRAN PERCENT AUTO 0 % (0-1); LYMPHOCYTES ABSOLUTE AUTO 0.68 K/mm3 (0.84-5.20); LYMPHOCYTES PERCENT AUTO 11 % (21-46); MONOCYTES ABSOLUTE AUTO 0.49 K/mm3 (0.16-1.47); MONOCYTES PERCENT AUTO 8 % (4-13); Mean Corpuscular HGB 21.1 pg (26.0-34.0); Mean Corpuscular HGB Conc 29.4 g/dL (31.5-36.5); Mean Corpuscular Volume 72 fL (80-100); Mean Platelet Volume 9.7 fL (9.1-12.4); NEUTROPHILS PERCENT AUTO 77 % (41-73); Platelet Count 193 K/mm3 (150-400); RDW Coefficient Variation 21.4 % (11.7-14.2); Red Blood Cell Count 5.07 M/mm3 (4.30-5.90); White Blood Cell Count 6.21 K/mm3 (4.00-11.30)
[2023-09-08 06:35] LABS: Albumin, Blood 3.1 g/dL (3.4-5.0); Anion Gap 11 mmol/L (3-11); Blood Urea Nitrogen 51 mg/dL (8-24); Bun/Creatinine Ratio 18.6 (12.0-20.0); CO2, Blood 27 mmol/L (21-32); Calcium, Blood 9.1 mg/dL (8.5-10.1); Chloride, Blood 105 mmol/L (98-108); Creatinine, Blood 2.74 mg/dL (0.60-1.20); Glomerular Filtration Rate 27 (60-); Glucose, Blood 97 mg/dL (70-99); Magnesium, Blood 2.5 mg/dL (1.6-2.4); Phosphorus, Blood 4.3 mg/dL (2.5-4.9); Potassium, Blood 4.2 mmol/L (3.5-5.5); Sodium, Blood 139 mmol/L (136-145)
[2023-09-08 07:21] VITALS: BP 108/80
[2023-09-08 15:52] VITALS: BP 110/80
--- NOTE | 2023-09-08 16:52 | NUR ---
SHIFT SUMMARY Pt remains A&Ox3 this shift. Denies pain. VSS. Up to bathroom independently. Increased dyspnea with exertion with quick recovery. IV diuretic given as ordered. Pt home med brought in today and scanned with pharmacy. No further needs id or verbalized at this time. Will continue to monitor.
[2023-09-08] MEDS ORDERED: Bumetanide 0.25 MG/ML 4ML ViaL IV SCH (18:00)
[2023-09-08 21:56] VITALS: BP 109/83
--- NOTE | 2023-09-09 05:19 | NUR ---
SHIFT SUMMARY NOC PT A/O X 4. PLEASANT AND COOPERATIVE WITH CARE. VSS. PT HAS EDEMA IN BLE FROM FLUID OVERLOAD FROM ACUTE ON CHRONIC HF. RECEIVING IV BUMEX BID. ON TELE RUNNING V-PACED @ 95 BPM. IS A DAILY WEIGHT TO MONITOR DIURETIC THERAPY. USING BEDSIDE URINALS DUE TO FREQUENCY FROM DIURETIC THERAPY. PTCURRENTLY RESTING WITH BED IN LOWEST POSITION, AND CALL LIGHT WITHIN REACH.
[2023-09-09 05:28] VITALS: BP 117/70
[2023-09-09 05:46] LABS: Hematocrit 35.9 % (37.0-53.0); Hemoglobin 10.8 g/dL (13.5-17.5)
[2023-09-09 06:22] LABS: Albumin, Blood 3.1 g/dL (3.4-5.0); Anion Gap 12 mmol/L (3-11); Blood Urea Nitrogen 53 mg/dL (8-24); Bun/Creatinine Ratio 20.8 (12.0-20.0); CO2, Blood 26 mmol/L (21-32); Calcium, Blood 9.3 mg/dL (8.5-10.1); Chloride, Blood 104 mmol/L (98-108); Creatinine, Blood 2.55 mg/dL (0.60-1.20); Glomerular Filtration Rate 29 (60-); Glucose, Blood 108 mg/dL (70-99); Magnesium, Blood 2.6 mg/dL (1.6-2.4); Phosphorus, Blood 4.1 mg/dL (2.5-4.9); Potassium, Blood 3.7 mmol/L (3.5-5.5); Sodium, Blood 138 mmol/L (136-145)
[2023-09-09 07:26] VITALS: BP 99/71
[2023-09-09 14:26] VITALS: BP 100/77
--- NOTE | 2023-09-09 15:35 | NUR ---
SHIFT/DISCHARGE SUMMARY Pt remains A&Ox3 this shift. VSS. Denies pain. Up to bathroom independently. Increased dyspnea at times on RA. All discharge instructions reviewed with return verbal understanding. Pt to lobby via wc with all belongings.
--- NOTE | 2023-09-10 08:45 | NUR ---
CARDIOLOGY FOLLOW UP CALL TO [facility] TO SCHEDULE FOLLOW UP. OFFICE UPDATED THAT PATIENT WAS ADMITTED AND NEEDS POST DISCHARGE FOLLOW UP. OFFICE TO CALL PATIENT TO SCHEDULE.
== END 2023-09-09 15:42 | disposition home or self-care (01) | DRG 291 ==
LOC: ER 14:31 → ERHOLD 17:14 → MEDS 17:14 → ENPENDDIS 09-09 13:46 → MEDS 09-09 15:42
PROVIDERS: Internal Medicine; Nurse Practitioner Acute Care; Student in an Organized Health Care Education/Training Program; ADMIT Internal Medicine
DX: I13.0 Hypertensive heart and chronic kidney disease with heart failure and stage 1 through stage 4 chronic kidney disease, or unspecified chronic kidney disease (principal); I50.23 Acute on chronic systolic (congestive) heart failure; E78.5 Hyperlipidemia, unspecified; I25.10 Atherosclerotic heart disease of native coronary artery without angina pectoris; K21.9 Gastro-esophageal reflux disease without esophagitis; I08.1 Rheumatic disorders of both mitral and tricuspid valves; E11.22 Type 2 diabetes mellitus with diabetic chronic kidney disease; N18.30 Chronic kidney disease, stage 3 unspecified; I42.8 Other cardiomyopathies; F17.210 Nicotine dependence, cigarettes, uncomplicated; Z86.718 Personal history of other venous thrombosis and embolism; Z79.02 Long term (current) use of antithrombotics/antiplatelets; Z79.899 Other long term (current) drug therapy; Z79.84 Long term (current) use of oral hypoglycemic drugs; Z79.01 Long term (current) use of anticoagulants; Z95.5 Presence of coronary angioplasty implant and graft; Z95.0 Presence of cardiac pacemaker
CPT/HCPCS: 36415; 71046; 80048; 80053; 80069; 82947; 83735; 83880; 85014; 85018; 85025; 93005; 93010; 96374; 99285-25; A9270; J1940

== ENCOUNTER 2024-05-13 06:08 | Day surgery (SDC) | payer OTHER ==
[~2024-05-13] VITALS: Ht 180.3 cm; Wt 106.6 kg
[~2024-05-13 06:08] MED LIST changes: +Balanced Salt Epinephrine Irrigation Solution 500 mL IR SCH; +Lidocaine HCl/Pf 1% 5 ML VIAL XX SCH; +Moxifloxacin HCL 0.5 MG/0.1 ML 0.4MLSYR RIGHTEYE SCH; +PHENYLEPHRINE\\TROPICAMIDE\\TETRACAINE OPHTHALMIC DILATING SOLN RIGHTEYE PRN; +Povidone-Iodine 450 DROP/30 ML Solution ONE; +Povidone-Iodine 450 DROP/30 ML Solution RIGHTEYE SCH; +TORSE20 PO; +Tetracaine HCl/Pf 0.5% Opth Soln 4 ml ONE
[2024-05-13] MEDS ORDERED: Diazepam 2 MG Tab ONE (06:13)
[2024-05-13] MEDS ORDERED: Diazepam 5 MG Tab ONE (06:14)
[2024-05-13] MEDS ORDERED: DIGOX125 MC1 PO (06:24)
[2024-05-13] MEDS ORDERED: CALCITRIOL0.25 MC4 (06:24)
[2024-05-13] MEDS ORDERED: BUMETANIDE2 M6 PO (06:25)
[2024-05-13] MEDS ORDERED: POT CHLORIDE (06:26)
--- NOTE | 2024-05-13 06:34 | NUR ---
05/13/24 0634 Agustín Kenney CALL LIGHT WITHIN REACH. TETRACAINE IN RIGHT EYE AT 0625 PLEDGETT IN AT 0655
[2024-05-13] MEDS ORDERED: Lidocaine HCl/Pf 1% 5 ML VIAL ONE (06:48)
[2024-05-13 07:57] VITALS: BP 113/84
== END 2024-05-13 08:23 | disposition home or self-care (01) ==
LOC: ORSCSDS 06:08
PROVIDERS: Student in an Organized Health Care Education/Training Program
PROC: 08RJ3JZ Replacement of Right Lens with Synthetic Substitute, Percutaneous Approach (ICD-10-PCS; principal; 2024-05-13 07:30)
DX: E11.36 Type 2 diabetes mellitus with diabetic cataract (principal); H25.813 Combined forms of age-related cataract, bilateral; I42.9 Cardiomyopathy, unspecified; I50.20 Unspecified systolic (congestive) heart failure; Z95.0 Presence of cardiac pacemaker; E11.22 Type 2 diabetes mellitus with diabetic chronic kidney disease; N18.9 Chronic kidney disease, unspecified; Z79.84 Long term (current) use of oral hypoglycemic drugs; Z79.899 Other long term (current) drug therapy; Z79.01 Long term (current) use of anticoagulants; Z79.02 Long term (current) use of antithrombotics/antiplatelets; Z87.891 Personal history of nicotine dependence
CPT/HCPCS: 82947; A9270; J2003; V2632

== ENCOUNTER 2024-05-20 06:07 | Day surgery (SDC) | payer OTHER ==
[~2024-05-20] VITALS: Ht 180.3 cm; Wt 108.0 kg
[~2024-05-20 06:07] MED LIST changes: +BUMETANIDE2 M6 PO; +CALCITRIOL0.25 MC4; +DIGOX125 MC1 PO; +Moxifloxacin HCL 0.5 MG/0.1 ML 0.4MLSYR LEFTEYE SCH; -Moxifloxacin HCL 0.5 MG/0.1 ML 0.4MLSYR RIGHTEYE SCH; +PHENYLEPHRINE\\TROPICAMIDE\\TETRACAINE OPHTHALMIC DILATING SOLN LEFTEYE PRN; -PHENYLEPHRINE\\TROPICAMIDE\\TETRACAINE OPHTHALMIC DILATING SOLN RIGHTEYE PRN; +POT CHLORIDE; +Povidone-Iodine 450 DROP/30 ML Solution LEFTEYE SCH; -Povidone-Iodine 450 DROP/30 ML Solution RIGHTEYE SCH
[2024-05-20] MEDS ORDERED: Diazepam 2 MG Tab ONE (06:11)
[2024-05-20] MEDS ORDERED: Diazepam 5 MG Tab ONE (06:12)
[2024-05-20] MEDS ORDERED: Lidocaine HCl/Pf 1% 5 ML VIAL ONE ×2 (06:41→09:56)
--- NOTE | 2024-05-20 06:41 | NUR ---
05/20/24 0641 Saadia Jimenez REASSESSED ANXIETY; PT RATES ANXIETY 0/10. PT HAS CALL LIGHT IN HAND.
[2024-05-20] MEDS ORDERED: BSS PLUS/EPINEPHRINE IRRIGATION SOLUTION 500 ML IR ONE (07:33)
[2024-05-20] MEDS ORDERED: Lidocaine HCl/Pf 1% 5 ML VIAL XX ONE (07:33)
[2024-05-20] MEDS ORDERED: Moxifloxacin HCL 0.5 MG/0.1 ML 0.4MLSYR XX ONE (07:33)
[2024-05-20 08:14] VITALS: BP 126/94
== END 2024-05-20 08:16 | disposition home or self-care (01) ==
LOC: ORSCSDS 06:07
PROVIDERS: Student in an Organized Health Care Education/Training Program
PROC: 08RK3JZ Replacement of Left Lens with Synthetic Substitute, Percutaneous Approach (ICD-10-PCS; principal; 2024-05-20 07:30)
DX: E11.36 Type 2 diabetes mellitus with diabetic cataract (principal); H25.12 Age-related nuclear cataract, left eye; Z96.1 Presence of intraocular lens; I12.9 Hypertensive chronic kidney disease with stage 1 through stage 4 chronic kidney disease, or unspecified chronic kidney disease; E11.22 Type 2 diabetes mellitus with diabetic chronic kidney disease; N18.30 Chronic kidney disease, stage 3 unspecified; Z79.84 Long term (current) use of oral hypoglycemic drugs; Z95.0 Presence of cardiac pacemaker; I25.10 Atherosclerotic heart disease of native coronary artery without angina pectoris; I25.2 Old myocardial infarction; Z79.01 Long term (current) use of anticoagulants; Z79.899 Other long term (current) drug therapy; H21.81 Floppy iris syndrome
CPT/HCPCS: 82947; A9270; J2003; V2632